=== PATIENT | female | born 1930 | race Caucasian/White ===

== ENCOUNTER 2016-08-13 14:08 | Observation (INO) | payer MEDICARE ==
[2016-08-13] MEDS ORDERED: Sodium Chloride 0.9% 1000 ML 1,000 ML ONE (15:09)
[2016-08-13] MEDS ORDERED: DUONEB 0.5-3 MG/3 ml Neb IH ONE ×2 (15:15→15:26)
--- NOTE | 2016-08-13 15:20 | ERPHSYRPT ---
- History of Present Illness Time Seen by Provider: 08/13/16 15:10 Source: patient Exam Limitations: no limitations Patient Subjective Stated Complaint: PT REPORTS THAT SHE HAS HAD A PRODUCTIVE COUGH BEGINNING YESTERDAY-THICK WHITE SPUTUM-LOW GRADE FEVER BEGINNING YESTERDAY -DENIES N/V/D-REPORTS PAIN INCREASING WITH DEEP BREATHING Triage Nursing Assessment: PT PALE FLUSHED ET WARM UPON ARRIVAL-WHEEZES NOTED- RESP LABORED WITH MOVEMENT-PT ABLE TO ANSWER QUESTIONS Physician History: 86-year-old white female brought by her family arrives with complaints of shortness of breath cough since last night.. Family states patient has had some pain with coughing earlier patient denies any chest pain at this time. Patient has no vomiting no diarrhea no other problems. Past medical history includes restless legs, insomnia, Thibodeaux's palsy, cyst right kidney, Past surgical history includes tonsillectomy appendectomy cholecystectomy hysterectomy kyphoplasty. Timing/Duration: yesterday (symptoms since last night) Activities at Onset: none Severity of Dyspnea-Max: moderate Severity of Dyspnea-Current: moderate Possible Cause: no prior episodes Modifying Factors: Improves With: coughing Associated Symptoms: cough, chest pain/discomfort (pain anterior chest with coughing), fever (low-grade fever), productive cough (white sputum), No edema, No insomnia, No loss of appetite, No hemoptysis, No calf pain, No dizziness, No heaviness, No heart racing, No lightheadedness, No leg swelling, No muscle spasms feet, No muscle spasms hands International travel in last 2 weeks: No Allergies/Adverse Reactions: aspirin Allergy (Mild, Verified 08/13/16 14:30) codeine [Codeine] Allergy (Mild, Verified 08/13/16 14:30) Penicillins Allergy (Mild, Verified 08/13/16 14:30) Sulfa (Sulfonamide Antibiotics) [Sulfa(Sulfonamide Antibiotics)] Allergy (Mild, Verified 08/13/16 14:30) Tetracyclines Allergy (Verified 08/13/16 14:30) maitake mushroom Adverse Reaction (Mild, Verified 08/13/16 14:30) Nausea and Vomiting Home Medications: Lisinopril/Hydrochlorothiazide [Lisinopril-Hctz 20-12.5 mg Tab] 1 each PO DAILY 03/15/12 [History] Pramipexole Di-HCl 0.5 mg [Mirapex 0.5 MG Tablet] 0.5 mg PO HS #0 [History] Simvastatin 40 mg [Zocor 40 mg] 40 mg PO HS 03/15/12 [History] Acetaminophen 325 mg [Tylenol 325 mg] 2 tab PO Q4H PRN PRN 07/21/14 [ History] Glimepiride 2 mg [Amaryl 2 MG] 2 mg PO DAILY 07/21/14 [History] PANTOPRAZOLE 40 mg Tablet [Protonix 40MG Tablet] 40 mg PO BID 07/21/14 [ History] Pioglitazone 30 mg [Actos 30 MG] 30 mg PO DAILY 07/21/14 [History] Senna 8.6 mg [Senokot 8.6 mg] 2 tab PO DAILY 07/21/14 [History] Amlodipine Besylate [Norvasc] 2.5 mg PO DAILY 08/13/16 [History] Ferrous Sulfate 325 mg [Feosol 325 mg] 325 mg PO BID 08/13/16 [History] Furosemide 40 mg [Lasix 40 MG] 40 mg PO DAILY 08/13/16 [History] Gabapentin [Neurontin] 300 mg PO HS 08/13/16 [History] Memantine HCl 5 mg [Namenda 5 MG] 5 mg PO BID 08/13/16 [History] Mirtazapine [Remeron] 7.5 mg PO HS 08/13/16 [History] Hx Tetanus, Diphtheria Vaccination/Date Given: No Hx Influenza Vaccination/Date Given: Yes (2015) Hx Pneumococcal Vaccination/Date Given: No Immunizations Up to Date: Yes - Review of Systems Constitutional: Fever, No Chills, No Fatigue, No Lethargy, No Malaise, No Night Sweats, No Weakness, No Weight Loss Eyes: No Symptoms, No Discharge, No Eye Pain, No Eye Redness, No Itchy, No Photophobia, No Tearing, No Vision Changes, No Double Vision, No Foreign Body Sensation Ears, Nose, & Throat: No Symptoms, No Ear Pain, No Ear Discharge, No Hearing Changes, No Tinnitus, No Nose Pain, No Nose Congestion, No Nose Discharge, No Sinus Drainage, No Epistaxis, No Mouth Pain, No Mouth Swelling, No Loose Teeth, No Throat Pain, No Throat Swelling, No Hoarse, No Painful Swallowing, No Snoring , No Stridor Respiratory: Cough, Dyspnea, Wheezing Cardiac: Chest Pain (pain with coughing earlier), No Edema, No Syncope Abdominal/Gastrointestinal: No Symptoms Genitourinary Symptoms: No Dysuria Musculoskeletal: No Back Pain, No Neck Pain Skin: No Rash Neurological: No Dizziness, No Focal Weakness, No Sensory Changes Psychological: No Symptoms Endocrine: No Symptoms All Other Systems: Reviewed and Negative - Past Medical History Pertinent Past Medical History: Yes Neurological History: Dementia, Migraines ENT History: No Pertinent History Cardiac History: High Cholesterol, Hypertension Respiratory History: Asthma, Bronchitis, Pneumonia Endocrine Medical History: Diabetes Type I, Hypothyroidism Musculoskeletal History: No Pertinent History GI Medical History: GERD History: Other Psycho-Social History: No Pertinent History Female Reproductive Disorders: No Pertinent History Other Medical History: restless legs, insomnia. hx bells palsey. recent cyst to right kidney - Past Surgical History Past Surgical History: Yes Neuro Surgical History: No Pertinent History Cardiac: No Pertinent History Respiratory: No Pertinent History Gastrointestinal: Appendectomy, Cholecystectomy Genitourinary: No Pertinent History Musculoskeletal: Orthopedic Surgery Female Surgical History: Hysterectomy Other Surgical History: kyphoplasty - Social History Smoking Status: Never smoker Exposure to second hand smoke: No Drug Use: none Patient Lives Alone: No - Female History Hx Now: No - Nursing Vital Signs Nursing Vital Signs: Initial Vital Signs Temperature 100.0 F Temperature Source Oral Pulse Rate 79 Respiratory Rate 16 Blood Pressure [] 113/54 Pain Intensity 8 - Physical Exam General Appearance: mild distress, other (well-developed obese white female alert oriented 3 frequent cough) Eye Exam: PERRL/EOMI Ears, Nose, Throat Exam: hearing grossly normal, normal ENT inspection, normal pharynx, No abnormal TM (R), No abnormal TM (L), No pharyngeal erythema Neck Exam: normal inspection, supple Respiratory Exam: diminished breath sounds, wheezing Cardiovascular/Chest Exam: normal heart sounds, regular rate/rhythm Abdominal/Gastrointestinal Exam: soft, No tenderness, No distention, No mass Extremity Exam: non-tender, normal range of motion, normal inspection, no calf tenderness, no pedal edema Peripheral Pulses Exam: dorsalis-pedis (R): 2+, dorsalis-pedis (L): 2+ Neurologic Exam: alert, oriented x 3, cooperative, brake repairer II-XII nml as tested, sensation nml, No motor deficits Skin Exam: normal color, warm, No dry SpO2 Interpretation: normal (94%) SpO2: 94 Oxygen Delivery: Room Air - Course Nursing assessment & vital signs reviewed: Yes EKG Interpreted by Me: RATE (98 bpm), Left Brandon Deviation, Other (EKG, sinus arrhythmia, 98 bpm, left axis deviation, no acute ST or T wave changes noted) - Radiology Exams Chest X-ray Interpretation: Discussed w/ radiologist (chest x-ray: Nonacute chest with chronic features) Ordered Tests: Active Orders 24 hr Category Date Time Status [employer] Jointer STAT Care 08/13/16 15:15 Active EKG-ER Only STAT Care 08/13/16 15:15 Active IV Insertion STAT Care 08/13/16 15:15 Active Pulse Oximetry (ED) STAT Care 08/13/16 15:15 Active CHEST 1 VIEW (PORTABLE) Stat Exams 08/13/16 15:15 Completed CBC W DIFF Stat Lab 08/13/16 15:35 Completed CMP Stat Lab 08/13/16 15:35 Completed NT PRO BNP Stat Lab 08/13/16 15:35 Completed TROPONIN Stat Lab 08/13/16 15:35 Completed VENOUS BLOOD GAS Urgent Lab 08/13/16 15:35 Completed Respiratory Nebulizer STAT RT 08/13/16 15:16 Completed Transfer Order Routine Transfer 08/13/16 16:56 Ordered Medication Summary Discontinued Medications Generic Name Dose Route Start Last Admin Trade Name Brenden PRN Reason Stop Dose Admin Albuterol/Ipratropium 3 ml 08/13/16 15:15 08/13/16 15:41 Duoneb 0.5-3 Mg/3 Ml Neb IH 08/13/16 15:16 3 ml STAT ONE Administration Albuterol/Ipratropium Confirm 08/13/16 15:26 Duoneb 0.5-3 Mg/3 Ml Neb Administered 08/13/16 15:27 Dose 3 ml IH .STK-MED ONE Sodium Chloride Confirm 08/13/16 15:09 Sodium Chloride 0.9% 1000 Ml Administered 08/13/16 15:10 Dose 1,000 mls @ ud .ROUTE .STK-MED ONE Lab/Rad Data: Laboratory Result Diagrams 08/13/16 15:35 08/13/16 15:35 Laboratory Results 08/13/16 08/13/16 08/13/16 Range/Units 15:40 15:35 15:35 WBC (4.0-10.5) K/mm3 RBC (4.1-5.4) M/mm3 Hgb (12.0-16.0) gm/dl Hct (35-47) % MCV (78-100) fl MCH (26-32) pg MCHC (32-36) g/dl RDW (11.5-14.0) % Plt Count (150-450) K/mm3 MPV (6-9.5) fl Gran % (36.0-66.0) % Lymphocytes % (24.0-44.0) % Monocytes % (0.0-12.0) % Eosinophils % (0.00-5.0) % Basophils % (0.0-0.4) % Basophils # (0-0.4) VBG pH 7.47 H (7.32-7.42) VBG pCO2 at Pat Temp 37 L (42-55) mm/Hg VBG pO2 at Pat Temp 50 H (25-40) mm/Hg VBG HCO3 26.9 (22-28) meq/L VBG O2 Sat (Angela) 90.5 L (95-100) VBG Base Excess 3.3 H (-2.0-2.0) VBG Hemoglobin 14.8 VBG Carboxyhemoglobin 3.5 (0.0-6.9) % T HGB POC Potassium 4.5 (3.5-5.1) Sodium 136 (136-145) mEq/L Potassium 4.6 (3.5-5.1) mEq/L Chloride 98 (98-107) mEq/L Carbon Dioxide 29.7 (21-32) mEq/L Anion Gap 12.8 (5-15) MEQ/L BUN 58 H (9-20) mg/dL Creatinine 2.50 H (0.55-1.30) mg/dl Estimated GFR 19 ML/MIN Glucose 155 H (70-110) MG/DL Calcium 8.7 (8.5-10.1) mg/dL Total Bilirubin 0.6 (0.2-1.0) mg/dL AST 17 (15-37) U/L ALT 14 (12-78) U/L Alkaline Phosphatase 73 (46-116) U/L Troponin I < 0.017 (0.000-0.056) ng/ml NT-Pro-B Natriuret Pep 4831 H (0-450) pg/ml Serum Total Protein 7.6 (6.4-8.2) gm/dL Albumin 3.1 L (3.4-5.0) g/dL Influenza Type A Ag POSITIVE (NEGATIVE) Influenza Type B Ag NEGATIVE (NEGATIVE) RSV (PCR) NEGATIVE (Negative) 08/13/16 Range/Units 15:35 WBC 10.4 (4.0-10.5) K/mm3 RBC 4.51 (4.1-5.4) M/mm3 Hgb 14.5 (12.0-16.0) gm/dl Hct 46.7 (35-47) % MCV 103.5 H (78-100) fl MCH 32.2 H (26-32) pg MCHC 31.0 L (32-36) g/dl RDW 16.7 H (11.5-14.0) % Plt Count 139 L (150-450) K/mm3 MPV 10.6 H (6-9.5) fl Gran % 82.2 H (36.0-66.0) % Lymphocytes % 10.2 L (24.0-44.0) % Monocytes % 7.4 (0.0-12.0) % Eosinophils % 0.1 (0.00-5.0) % Basophils % 0.1 (0.0-0.4) % Basophils # 0.01 (0-0.4) VBG pH (7.32-7.42) VBG pCO2 at Pat Temp (42-55) mm/Hg VBG pO2 at Pat Temp (25-40) mm/Hg VBG HCO3 (22-28) meq/L VBG O2 Sat (Angela) (95-100) VBG Base Excess (-2.0-2.0) VBG Hemoglobin VBG Carboxyhemoglobin (0.0-6.9) % T HGB POC Potassium (3.5-5.1) Sodium (136-145) mEq/L Potassium (3.5-5.1) mEq/L Chloride (98-107) mEq/L Carbon Dioxide (21-32) mEq/L Anion Gap (5-15) MEQ/L BUN (9-20) mg/dL Creatinine (0.55-1.30) mg/dl Estimated GFR ML/MIN Glucose (70-110) MG/DL Calcium (8.5-10.1) mg/dL Total Bilirubin (0.2-1.0) mg/dL AST (15-37) U/L ALT (12-78) U/L Alkaline Phosphatase (46-116) U/L Troponin I (0.000-0.056) ng/ml NT-Pro-B Natriuret Pep (0-450) pg/ml Serum Total Protein (6.4-8.2) gm/dL Albumin (3.4-5.0) g/dL Influenza Type A Ag (NEGATIVE) Influenza Type B Ag (NEGATIVE) RSV (PCR) (Negative) - Progress Progress: improved Air Movement: fair Progress Note: 08/13/16 16:48 This is a 86-year-old white female who has a local [facility] with history of dementia migraines, hypercholesterolemia, asthma, bronchitis or pneumonia, diabetes, hypothyroidism She is brought by [facility] stand with complaint of productive cough shortness of breath low grade temperature since last night. On arrival patient was short of breath she had diminished breath sounds bilateral wheezes. Patient was given albuterol treatment patient is feeling better however patient now has some rales which are out of all in the bases. Patient's vitals are stable she does have a temperature 100.1 pulse 1:15 respiration 26 blood pressure 121/56, Chest x-ray data stable nonacute chest was chronic features EKG was remarkable for sinus arrhythmia 98 bpm left axis deviation no acute ST or T wave changes were noted. Patient's venous gases pH 7.47 PCO2 37.. Chemistry sodium 136 potassium 4.6 chloride 98 bicarbonate 29.7 BUN 58 creatinine 2.5 glucose 155. CBC white cell 10.4 hemoglobin 14.94 hematocrit 46.7 platelets 139. Patient's troponin is less than 0.017 BNP is elevated at 4831 Patient states she is feeling better she does not have pain at this time Case is discussed with Dr. Gasca Will go ahead and give patient Lasix. Will start patient on Rocephin it is noted patient is allergic to penicillin this has been discussed with Dr. Gasca. Will place patient on telemetry MedSurg diagnosis CHF COPD. Will provide IV antibiotics Lasix and breathing treatments and continue telemetry. 08/13/16 17:01 Patient will be given Lasix 40 mg IV in the emergency room which is to continue during her observation admission. Will also have patient on Tamiflu 75 mg orally twice a day. Will give Rocephin 1 g IV in the emergency room which will continue. - Departure Time of Disposition: 16:55 Departure Disposition: Observation Clinical Impression: COPD with exacerbation, Shortness of breath Congestive heart failure Qualifiers: Congestive heart failure type: unspecified congestive heart failure type Congestive heart failure chronicity: acute Qualified Code(s): I50.9 - Heart failure, unspecified Condition: Fair Critical Care Time: No Referrals: KEM GAR [Primary Care Provider] - Instructions: Chronic Obstructive Pulmonary Disease, Heart Failure
--- NOTE | 2016-08-13 15:33 | XRAY ---
Indication: Cough. Short of breath. Comparison: July 21, 2014. Portable chest remains clear again with a few calcified granulomas. Heart is not enlarged with again valvular calcifications. Descending aorta remains tortuous. Bony thorax intact again with osteopenia, degenerative changes, and lower thoracic kyphoplasty. Impression: Nonacute chest with chronic features.
[2016-08-13 15:40] LABS: VBG BASE EXCESS 3.3 (-2.0-2.0); VBG CARBOXYHEMOGLOBIN 3.5 % T HGB (0.0-6.9); VBG HCO3- 26.9 meq/L (22-28); VBG HEMOGLOBIN 14.8; VBG O2 SATURATION 90.5 (95-100); VBG POTASSIUM 4.5 (3.5-5.1); VBG pH 7.47 (7.32-7.42)
[2016-08-13 15:51] LABS: BASOPHIL % 0.1 % (0.0-0.4); Eosinophil % 0.1 % (0.00-5.0); Granulocytes % 82.2 % (36.0-66.0); Lymphocytes % 10.2 % (24.0-44.0); Mean Cell Volume 103.5 fl (78-100); Mean Corpuscular Hemoglobin 32.2 pg (26-32); Mean Platelet Volume 10.6 fl (6-9.5); Monocytes % 7.4 % (0.0-12.0); Platelet Count 139 K/mm3 (150-450); Red Blood Count 4.51 M/mm3 (4.1-5.4); Red Cell Distribution Width 16.7 % (11.5-14.0); White Blood Count 10.4 K/mm3 (4.0-10.5)
[2016-08-13 16:16] LABS: ALBUMIN 3.1 g/dL (3.4-5.0); ALKALINE PHOSPHATASE 73 U/L (46-116); ANION GAP 12.8 MEQ/L (5-15); BILIRUBIN,TOTAL 0.6 mg/dL (0.2-1.0); BLOOD UREA NITROGEN 58 mg/dL (9-20); CHLORIDE 98 mEq/L (98-107); Carbon Dioxide 29.7 mEq/L (21-32); Glucose 155 MG/DL (70-110); Potassium 4.6 mEq/L (3.5-5.1); SGOT/AST 17 U/L (15-37); SGPT/ALT 14 U/L (12-78); SODIUM 136 mEq/L (136-145); Total Protein 7.6 gm/dL (6.4-8.2)
[2016-08-13 16:26] LABS: TROPONIN < 0.017 ng/ml (0.000-0.056)
[2016-08-13] MEDS ORDERED: Tamiflu 75MG Capsule PO ONE ×2 (17:02→17:21)
[2016-08-13] MEDS ORDERED: ROCEPHIN 1 Gm-D5w 50 ml Bag** 50 ML IV ONE ×2 (17:02→17:21)
[2016-08-13] MEDS ORDERED: Lasix 40 MG/4 ML IV ONE (17:02)
[2016-08-13] MEDS ORDERED: Lasix 40 MG/4 ML ONE (17:21)
[2016-08-13] MEDS ORDERED: MORPHINE SULFATE 4 MG INJ ONE (17:36)
[2016-08-13] MEDS: DUONEB 0.5-3 MG/3 ml Neb IH SCH ×2 (18:59→22:59)
[2016-08-13] MEDS ORDERED: Sodium Chloride 0.9% 1000 ML 1,000 ML IV SCH (21:00)
[2016-08-13] MEDS: Tamiflu 75MG Capsule PO SCH (22:03)
[2016-08-13] MEDS: Namenda 5 MG PO SCH (22:47)
[2016-08-13] MEDS: Protonix 40MG Tablet PO SCH (22:47)
[2016-08-13] MEDS: NEURONTIN 300 MG PO SCH (22:47)
[2016-08-13] MEDS: ZOCOR 20MG PO SCH (22:47)
[2016-08-13] MEDS: Mirapex 0.5 MG Tablet PO SCH (22:47)
[2016-08-13] MEDS: REMERON 30 MG PO SCH (23:51)
[2016-08-14] MEDS: DUONEB 0.5-3 MG/3 ml Neb IH SCH ×5 (03:00→18:45)
[2016-08-14] MEDS: Sodium Chloride 0.9% 1000 ML 1,000 ML IV SCH ×2 (03:31→23:35)
[2016-08-14 05:42] LABS: Mean Cell Volume 104.5 fl (78-100); Mean Platelet Volume 10.9 fl (6-9.5); Platelet Count 122 K/mm3 (150-450); Red Blood Count 3.79 M/mm3 (4.1-5.4); Red Cell Distribution Width 16.6 % (11.5-14.0); White Blood Count 7.9 K/mm3 (4.0-10.5)
[2016-08-14 05:53] LABS: Mean Corpuscular Hemoglobin 32.1 pg (26-32)
[2016-08-14 06:12] LABS: ALBUMIN 2.6 g/dL (3.4-5.0); ANION GAP 13.4 MEQ/L (5-15); BILIRUBIN,TOTAL 0.4 mg/dL (0.2-1.0); Carbon Dioxide 27.1 mEq/L (21-32); Potassium 4.2 mEq/L (3.5-5.1); Total Protein 6.4 gm/dL (6.4-8.2)
[2016-08-14] MEDS ORDERED: MORPHINE SULFATE 4 MG INJ IV PRN (07:16)
--- NOTE | 2016-08-14 08:04 | PCM.HP ---
History of Present Illness - Chief Complaint Chief Complaint: Shortness of Breath for 1-2 days History of Present Illness: is a 86-year-old white female brought by her family arrives with complaints of shortness of breath cough since last night.. Family states patient has had some pain with coughing earlier patient denies any chest pain at this time. Patient has no vomiting no diarrhea no other problems. - Review of Systems Constitutional: Fever, Chills, Fatigue, Lethargy, Malaise, Weakness Eyes: No Symptoms Ears, Nose, & Throat: No Symptoms Respiratory: Cough, No Short Of Breath Cardiac: No Chest Pain, No Edema, No Syncope Abdominal/Gastrointestinal: No Abdominal Pain, No Nausea, No Vomiting, No Diarrhea Genitourinary Symptoms: No Dysuria Musculoskeletal: No Back Pain, No Neck Pain Skin: No Rash Neurological: No Dizziness, No Focal Weakness, No Sensory Changes Psychological: No Symptoms Endocrine: No Symptoms Hematologic/Lymphatic: No Symptoms Immunological/Allergic: No Symptoms Medications & Allergies Home Medications: Home Medication List Pramipexole Di-HCl 0.5 mg [Mirapex 0.5 MG Tablet] 0.5 mg PO HS #0 [History Confirmed 08/13/16] Simvastatin 40 mg [Zocor 40 mg] 40 mg PO HS 03/15/12 [History Confirmed 08/13/16 ] Acetaminophen 325 mg [Tylenol 325 mg] 2 tab PO Q4H PRN PRN 07/21/14 [ History Confirmed 08/13/16] Glimepiride 2 mg [Amaryl 2 MG] 2 mg PO DAILY 07/21/14 [History Confirmed 08/13/16] PANTOPRAZOLE 40 mg Tablet [Protonix 40MG Tablet] 40 mg PO BID 07/21/14 [ History Confirmed 08/13/16] Pioglitazone 30 mg [Actos 30 MG] 30 mg PO DAILY 07/21/14 [History Confirmed 08/13/16] Senna 8.6 mg [Senokot 8.6 mg] 2 tab PO DAILY 07/21/14 [History Confirmed 08/13/16] Amlodipine Besylate [Norvasc] 2.5 mg PO DAILY 08/13/16 [History Confirmed ] Cholecalciferol (Vitamin D3) [Vitamin D] 5,000 unit PO DAILY 08/13/16 [ History Confirmed 08/13/16] Docusate Sodium 100 mg [Colace 100 MG] 100 mg PO TID 08/13/16 [History Confirmed 08/13/16] Epoetin Wong [Epogen] 5,000 unit IJ UD 08/13/16 [History Confirmed 08/13/16] Ferrous Sulfate 325 mg [Feosol 325 mg] 325 mg PO BID 08/13/16 [History Confirmed 08/13/16] Folic Acid 1 mg PO DAILY 08/13/16 [History Confirmed 08/13/16] Furosemide 40 mg [Lasix 40 MG] 40 mg PO DAILY 08/13/16 [History Confirmed 08/13/16] Gabapentin [Neurontin] 300 mg PO HS 08/13/16 [History Confirmed 08/13/16] Glucagon 1 mg [GlucaGen 1 MG] 1 mg IM DAILY PRN PRN 08/13/16 [History Confirmed 08/13/16] Hydrocodone Bit/Acetaminophen [Hydrocodon-Acetaminophen 5-325] 1 tab PO [id number] PRN 08/13/16 [History Confirmed 08/13/16] Levothyroxine Sodium 50 Mcg [Synthroid 50 Mcg] 50 mcg PO DAILY 08/13/16 [ History Confirmed 08/13/16] Lisinopril/Hydrochlorothiazide [Lisinopril-Hctz 10-12.5 mg Tab] 1 each PO DAILY 08/13/16 [History Confirmed 08/13/16] Melatonin/Pyridoxine [Melatonin 3 mg Tablet] 1 each PO HS 08/13/16 [History Confirmed 08/13/16] Memantine HCl 5 mg [Namenda 5 MG] 5 mg PO BID 08/13/16 [History Confirmed 08/13/16] Mirtazapine [Remeron] 7.5 mg PO HS 08/13/16 [History Confirmed 08/13/16] Allergies/Adverse Reactions: Allergies Allergy/AdvReac Type Severity Reaction Status Date / Time aspirin Allergy Mild Verified 02/20/17 14:30 codeine [Codeine] Allergy Mild Verified 08/13/16 14:30 Penicillins Allergy Mild Verified 08/13/16 14:30 Sulfa (Sulfonamide Allergy Mild Verified 08/13/16 14:30 Antibiotics) [Sulfa(Sulfonamide Antibiotics)] Tetracyclines Allergy Verified 08/13/16 14:30 maitake mushroom AdvReac Mild Nausea and Verified 08/13/16 14:30 Vomiting - Past Medical History Past Medical History: Yes Neurological History: Dementia, Migraines ENT History: No Pertinent History Cardiac History: High Cholesterol, Hypertension Respiratory History: Asthma, Bronchitis, Pneumonia Endocrine Medical History: Diabetes Type I, Hypothyroidism Musculoskelatal History: No Pertinent History GI Medical History: GERD History: Other Pyscho-Social History: No Pertinent History Reproductive Disorders: No Pertinent History Comment: restless legs, insomnia. hx bells palsey. recent cyst to right kidney - Female History Are you now?: No - Past Surgical History Past Surgical History: Yes Neuro Surgical History: No Pertinent History Cardiac History: No Pertinent History Respiratory Surgery: No Pertinent History GI Surgical History: Appendectomy, Cholecystectomy Genitourinary Surgical Hx: No Pertinent History Musculskeletal Surgical Hx: Orthopedic Surgery Female Surgical History: Hysterectomy Other Surgical History: kyphoplasty - Social History Smoking Status: Never smoker Exposure to second hand smoke: No Alcohol: None Drug Use: none - Physical Exam Vital Signs: Vital Signs - 24 hr Temp Pulse Resp BP BP Pulse Ox 08/14/16 07:25 97.6 F 80 18 105/47 95 08/14/16 07:22 97.6 F 80 18 105/47 95 08/14/16 04:00 98.5 F 81 18 100/50 97 08/14/16 03:00 81 18 97 08/14/16 00:00 98.5 F 75 19 102/49 95 08/13/16 22:59 75 19 95 08/13/16 22:00 89/45 08/13/16 19:48 100.1 F 87 18 82/48 91 L 08/13/16 19:04 86/52 08/13/16 18:59 86 23 93 L 08/13/16 17:02 94 L 08/13/16 17:00 100.1 F 82 20 86/52 91 L 08/13/16 15:50 94 L 08/13/16 15:42 99 08/13/16 15:40 79 16 113/54 98 08/13/16 15:16 115 H 24 95 08/13/16 14:21 100.0 F 115 H 26 H 121/56 94 L Oxygen-Last 24 hours O2 Percentage 2 Liters = 28% O2 Percentage 2 Liters = 28% O2 Percentage 2 Liters = 28% General Appearance: no apparent distress, alert Neurologic Exam: alert, oriented x 3, cooperative, normal mood/affect, nml cerebellar function, nml station & gait, sensation nml, No motor deficits Eye Exam: PERRL/EOMI, eyes nml inspection Ears, Nose, Throat Exam: normal ENT inspection, TMs normal, pharynx normal, moist mucous membranes Neck Exam: normal inspection, non-tender, supple, full range of motion Respiratory Exam: diminished breath sounds, wheezing, No respiratory distress Cardiovascular Exam: regular rate/rhythm, normal heart sounds, normal peripheral pulses Gastrointestinal/Abdomen Exam: soft, normal bowel sounds, No tenderness, No mass Back Exam: normal inspection, normal range of motion, No CVA tenderness, No vertebral tenderness Extremity Exam: normal inspection, normal range of motion, pelvis stable Skin Exam: normal color, warm, dry, No rash Lymphatic Exam: No adenopathy Results - Labs Lab/Micro Results: Accuchecks Date 08/13/16 Time 22:00 Accucheck Value: 164 Lab Results-Last 24 Hours 08/14/16 08/14/16 Range/Units 05:25 05:25 WBC 7.9 (4.0-10.5) K/mm3 RBC 3.79 L (4.1-5.4) M/mm3 Hgb 12.2 (12.0-16.0) gm/dl Hct 39.6 (35-47) % MCV 104.5 H (78-100) fl MCH 32.1 H (26-32) pg MCHC 30.8 L (32-36) g/dl RDW 16.6 H (11.5-14.0) % Plt Count 122 L (150-450) K/mm3 MPV 10.9 H (6-9.5) fl Sodium 136 (136-145) mEq/L Potassium 4.2 (3.5-5.1) mEq/L Chloride 100 (98-107) mEq/L Carbon Dioxide 27.1 (21-32) mEq/L Anion Gap 13.4 (5-15) MEQ/L BUN 68 H (9-20) mg/dL Creatinine 3.12 H (0.55-1.30) mg/dl Estimated GFR 15 ML/MIN Glucose 142 H (70-110) MG/DL Calcium 7.8 L (8.5-10.1) mg/dL Total Bilirubin 0.4 (0.2-1.0) mg/dL AST 44 H (15-37) U/L ALT 34 (12-78) U/L Alkaline Phosphatase 68 (46-116) U/L Serum Total Protein 6.4 (6.4-8.2) gm/dL Albumin 2.6 L (3.4-5.0) g/dL Accuchecks Date 08/13/16 Time 22:00 Accucheck Value: 164 - Other Procedures and Tests Respiratory Therapy 08/13/16 19:00 Respiratory Nebulizer Q4H Assessment/Plan (1) Influenza A Current Visit: Yes Status: Acute Assessment & Plan: continue supportive treatment Code(s): J10.1 - FLU DUE TO OTH IDENT INFLUENZA VIRUS W OTH RESP MANIFEST (2) COPD with exacerbation Current Visit: Yes Status: Acute Assessment & Plan: continue bronchodilater treatment Code(s): J44.1 - CHRONIC OBSTRUCTIVE PULMONARY DISEASE W (ACUTE) EXACERBATION (3) Congestive heart failure Current Visit: Yes Status: Chronic Qualifiers: Congestive heart failure type: unspecified congestive heart failure type Congestive heart failure chronicity: acute on chronic Qualified Code(s): I50.9 - Heart failure, unspecified Code(s): I50.9 - HEART FAILURE, UNSPECIFIED (4) Shortness of breath Current Visit: Yes Status: Acute Code(s): R06.02 - SHORTNESS OF BREATH (5) Fever Current Visit: No Status: Acute Code(s): R50.9 - FEVER, UNSPECIFIED (6) Chronic renal insufficiency, stage III (moderate) Current Visit: No Status: Chronic Code(s): N18.3 - CHRONIC KIDNEY DISEASE, STAGE 3 (MODERATE) (7) Diabetes mellitus Current Visit: No Status: Chronic Code(s): E11.9 - TYPE 2 DIABETES MELLITUS WITHOUT COMPLICATIONS
[2016-08-14] MEDS ORDERED: TYLENOL 325 MG PO PRN ×2 (09:00→09:13)
[2016-08-14] MEDS ORDERED: GlucaGen 1 MG IM PRN (09:00)
[2016-08-14] MEDS ORDERED: MEDICATION INTERVENTION MC SCH (09:30)
[2016-08-14] MEDS ORDERED: Lasix 40 MG/4 ML IV SCH (10:00)
[2016-08-14] MEDS ORDERED: NON-FORMULARY ITEM (Lisinopril/Hydrochlorothiazide [Lisinopril-Hctz 10-12.5 Mg Tab] 1 EACH PO SCH (10:00)
[2016-08-14] MEDS ORDERED: Lasix 40 MG PO SCH (10:00)
[2016-08-14] MEDS ORDERED: NON-FORMULARY ITEM (Amlodipine Besylate [Norvasc] 2.5 MG) PO SCH (10:00)
[2016-08-14] MEDS: ROCEPHIN 1 Gm-D5w 50 ml Bag** 50 ML IV SCH (10:13)
[2016-08-14] MEDS: Tamiflu 75MG Capsule PO SCH (10:13)
[2016-08-14] MEDS: Namenda 5 MG PO SCH ×2 (10:13→21:19)
[2016-08-14] MEDS: Protonix 40MG Tablet PO SCH ×2 (10:13→21:19)
[2016-08-14] MEDS: Colace 100 MG PO SCH ×3 (10:16→21:19)
[2016-08-14] MEDS: hydroDIURIL 25 MG PO SCH (10:16)
[2016-08-14] MEDS: SENOKOT 8.6 MG PO SCH (10:16)
[2016-08-14] MEDS: Zestril 10 MG PO SCH (10:16)
[2016-08-14] MEDS: Actos 30 MG PO SCH (10:16)
[2016-08-14] MEDS: NORVASC 5 MG PO SCH (10:16)
[2016-08-14] MEDS: FEOSOL 325 MG PO SCH ×2 (10:16→21:19)
[2016-08-14] MEDS: Amaryl 2 MG PO SCH (10:17)
[2016-08-14] MEDS: SYNTHROID 50 MCG PO SCH (10:17)
[2016-08-14] MEDS: FOLATE 1 MG PO SCH (10:17)
[2016-08-14] MEDS: VITAMIN D PO SCH (10:17)
[2016-08-14] MEDS: Zithromax 500 MG/ 250 ML NaCl Premix 250 ML IV SCH (10:54)
[2016-08-14] MEDS: NovoLOG Insulin SQ PRN ×2 (12:00→16:50)
[2016-08-14] MEDS: NORCO 5/325 MG PO PRN (12:32)
[2016-08-14] MEDS: NEURONTIN 300 MG PO SCH (21:19)
[2016-08-14] MEDS: ZOCOR 20MG PO SCH (21:19)
[2016-08-14] MEDS: REMERON 30 MG PO SCH (21:19)
[2016-08-14] MEDS: Mirapex 0.5 MG Tablet PO SCH (21:19)
[2016-08-14] MEDS ORDERED: PYRIDOXINE PO SCH (22:00)
[2016-08-14] MEDS ORDERED: MELATONIN PO SCH (22:00)
[2016-08-15] MEDS: DUONEB 0.5-3 MG/3 ml Neb IH SCH ×7 (00:02→15:05)
[2016-08-15 06:11] LABS: ANION GAP 12.5 MEQ/L (5-15); Carbon Dioxide 26.7 mEq/L (21-32); Potassium 4.6 mEq/L (3.5-5.1)
--- NOTE | 2016-08-15 09:12 | XRAY ---
Indication: CHF. COPD. Comparison: August 13, 2016. PA/lateral chest less inflated today with new right middle lobe infiltrate/atelectasis. Remaining heart and left lung stable and nonacute.
[2016-08-15] MEDS: Colace 100 MG PO SCH ×2 (09:39→14:28)
[2016-08-15] MEDS: hydroDIURIL 25 MG PO SCH (09:40)
[2016-08-15] MEDS: FOLATE 1 MG PO SCH (09:40)
[2016-08-15] MEDS: Zestril 10 MG PO SCH (09:40)
[2016-08-15] MEDS: VITAMIN D PO SCH (09:40)
[2016-08-15] MEDS: FEOSOL 325 MG PO SCH (09:40)
[2016-08-15] MEDS: SENOKOT 8.6 MG PO SCH (09:40)
[2016-08-15] MEDS: Protonix 40MG Tablet PO SCH (09:40)
[2016-08-15] MEDS: NORVASC 5 MG PO SCH (09:40)
[2016-08-15] MEDS: SYNTHROID 50 MCG PO SCH (09:40)
[2016-08-15] MEDS: Amaryl 2 MG PO SCH (09:40)
[2016-08-15] MEDS: ROCEPHIN 1 Gm-D5w 50 ml Bag** 50 ML IV SCH (09:41)
[2016-08-15] MEDS: Namenda 5 MG PO SCH (09:41)
[2016-08-15] MEDS: NORCO 5/325 MG PO PRN (09:41)
[2016-08-15] MEDS: Actos 30 MG PO SCH (09:41)
[2016-08-15] MEDS ORDERED: Tamiflu 75MG Capsule PO SCH (10:00)
[2016-08-15] MEDS ORDERED: PROCRIT SQ SCH (10:00)
[2016-08-15] MEDS: Zithromax 500 MG/ 250 ML NaCl Premix 250 ML IV SCH (10:48)
[2016-08-15] MEDS: NovoLOG Insulin SQ PRN (11:26)
[2016-08-15 11:41] VITALS: BP 100/44; PULSE 91; O2SAT 95
--- NOTE | 2016-08-15 12:19 | PCM.DS ---
Discharge Summary Date of Admission: 08/13/16 18:07 Admitting Physician: KEM GAR Primary Care Provider: KEM GAR Allergies Allergies aspirin Allergy (Mild, Verified 08/13/16 14:30) codeine [Codeine] Allergy (Mild, Verified 08/13/16 14:30) Penicillins Allergy (Mild, Verified 08/13/16 14:30) Sulfa (Sulfonamide Antibiotics) [Sulfa(Sulfonamide Antibiotics)] Allergy (Mild, Verified 08/13/16 14:30) Tetracyclines Allergy (Verified 08/13/16 14:30) maitake mushroom Adverse Reaction (Mild, Verified 08/13/16 14:30) Nausea and Vomiting Hospital Summary - Hospital Course Hospital Course: Chief Complaint Diagnosis Shortness of Breath for 1-2 days Allergies Allergy/AdvReac Type Severity Reaction Status Date / Time aspirin Allergy Mild Verified 08/13/16 14:30 codeine [Codeine] Allergy Mild Verified 08/13/16 14:30 Penicillins Allergy Mild Verified 08/13/16 14:30 Sulfa (Sulfonamide Allergy Mild Verified 08/13/16 14:30 Antibiotics) [Sulfa(Sulfonamide Antibiotics)] Tetracyclines Allergy Verified 08/13/16 14:30 maitake mushroom AdvReac Mild Nausea and Verified 08/13/16 14:30 Vomiting Vital Signs (Last 24 hours) Temp Pulse Resp BP Pulse Ox 08/15/16 11:40 98.7 F 91 H 18 100/44 95 08/15/16 07:34 98.3 F 72 15 134/63 96 08/15/16 06:58 72 15 96 08/15/16 04:00 99.1 F 88 22 134/62 94 L 08/15/16 03:32 87 18 94 L 08/15/16 00:02 86 18 92 L 08/15/16 00:00 97.6 F 85 17 114/57 95 08/14/16 20:00 98.2 F 72 13 116/54 97 08/14/16 18:45 72 13 97 08/14/16 16:00 97.7 F 78 21 107/51 97 08/14/16 14:38 78 16 96 Home Medications Medication Instructions Recorded Confirmed Last Taken Type Amlodipine Besylate [Norvasc] 2.5 mg PO DAILY 08/13/16 08/13/16 08/13/16 History Cholecalciferol (Vitamin D3) 5,000 unit PO DAILY 08/13/16 08/13/16 08/13/16 History [Vitamin D] Docusate Sodium 100 mg [Colace 100 mg PO TID 08/13/16 08/13/16 08/13/16 08: 00 History 100 MG] Epoetin Wong [Epogen] 5,000 unit IJ UD 08/13/16 08/13/16 Unknown History Ferrous Sulfate 325 mg [Feosol 325 mg PO BID 08/13/16 08/13/16 08/13/16 08: 00 History 325 mg] Folic Acid 1 mg PO DAILY 08/13/16 08/13/16 08/13/16 History Furosemide 40 mg [Lasix 40 40 mg PO DAILY 08/13/16 08/13/16 08/13/16 History MG] Gabapentin [Neurontin] 300 mg PO HS 08/13/16 08/13/16 08/12/16 History Glucagon 1 mg [GlucaGen 1 MG] 1 mg IM DAILY PRN PRN 08/13/16 08/13/16 Unknown History Hydrocodone Bit/Acetaminophen 1 tab PO [id number] PRN 08/13/16 08/13/16 Unknown History [Hydrocodon-Acetaminophen 5-325] Levothyroxine Sodium 50 Mcg 50 mcg PO DAILY 08/13/16 08/13/16 08/13/16 History [Synthroid 50 Mcg] Lisinopril/Hydrochlorothiazide 1 each PO DAILY 08/13/16 08/13/16 08/13/16 History [Lisinopril-Hctz 10-12.5 mg Tab] Melatonin/Pyridoxine [Melatonin 3 1 each PO HS 08/13/16 08/13/16 Unknown History mg Tablet] Memantine HCl 5 mg [Namenda 5 5 mg PO BID 08/13/16 08/13/16 08/13/16 History MG] Mirtazapine [Remeron] 7.5 mg PO HS 08/13/16 08/13/16 08/12/16 History Cephalexin Mh 500 mg [Keflex 500 500 mg PO QID #7 capsule 08/15/16 Unknown Rx mg] Oseltamivir 75 mg [Tamiflu 75MG 75 mg PO DAILY #5 cap 08/15/16 Unknown Rx Capsule] Current Medications Generic Name Dose Route Start Last Admin Trade Name Freq PRN Reason Stop Dose Admin Acetaminophen 650 mg 08/14/16 09:13 Tylenol 325 Mg PO 09/13/16 09:12 Q4H PRN PRN PAIN Acetaminophen/Hydrocodone Bitart 1 tab 08/14/16 09:00 08/15/16 09:41 [place] 5/325 Mg PO 08/19/16 08:59 1 tab [id number] PRN Administration PAIN Albuterol/Ipratropium 3 ml 08/13/16 19:00 08/15/16 10:16 Duoneb 0.5-3 Mg/3 Ml Neb IH 09/12/16 18:59 3 ml Q4HRT KIERAN Administration Amlodipine Besylate 2.5 mg 08/14/16 10:00 08/15/16 09:40 Norvasc 5 Mg PO 09/13/16 09:59 2.5 mg DAILY KIERAN Administration Cholecalciferol 5,000 unit 08/14/16 10:00 08/15/16 09:40 Vitamin D PO 09/13/16 09:59 5,000 unit DAILY KIERAN Administration Docusate Sodium 100 mg 08/14/16 10:00 08/15/16 09:39 Colace 100 Mg PO 09/13/16 09:59 100 mg TID KIERAN Administration Epoetin Wong 5,000 units 08/15/16 10:00 Procrit 78035 Units/Ml SQ 09/14/16 09:59 MoWeFr@1000 KIERAN Ferrous Sulfate 325 mg 08/14/16 10:00 08/15/16 09:40 Feosol 325 Mg PO 09/13/16 09:59 325 mg BID KIERAN Administration Folic Acid 1 mg 08/14/16 10:00 08/15/16 09:40 Folate 1 Mg PO 09/13/16 09:59 1 mg DAILY KIERAN Administration Furosemide 40 mg 08/14/16 10:00 Lasix 40 Mg/4 Ml IV 09/13/16 09:59 BID DIURETIC KIEARN Furosemide 40 mg 08/14/16 10:00 Lasix 40 Mg PO 09/13/16 09:59 DAILY KIERAN Gabapentin 300 mg 08/13/16 22:00 08/14/16 21:19 Neurontin 300 Mg PO 09/12/16 21:59 300 mg HS KIERAN Administration Glimepiride 2 mg 08/14/16 10:00 08/15/16 09:40 Amaryl 2 Mg PO 09/13/16 09:59 2 mg DAILY KIERAN Administration Glucagon 1 mg 08/14/16 09:00 Glucagen 1 Mg IM 09/13/16 08:59 DAILY PRN PRN HYPOGLYCEMIA Hydrochlorothiazide 12.5 mg 08/14/16 10:00 08/15/16 09:40 Hydrodiuril 25 Mg PO 09/13/16 09:59 12.5 mg DAILY KIERAN Administration Ceftriaxone Sodium/Dextrose 50 mls @ 100 mls/hr 08/14/16 10:00 08/15/16 09:41 Rocephin 1 Gm-D5w 50 Ml Bag IV 09/13/16 09:59 100 mls/hr Q24H10 KIERAN Administration Azithromycin 250 mls @ 125 mls/hr 08/14/16 10:00 08/15/16 10:48 Zithromax 500 Mg/ 250 Ml Nacl Premix IV 09/13/16 09:59 125 mls/hr Q24H10 KIERAN Administration Sodium Chloride 1,000 mls @ 10 mls/hr 08/13/16 23:15 08/14/16 23:35 Sodium Chloride 0.9% 1000 Ml IV 09/12/16 23:14 10 mls/hr .Q24H KIERAN Administration Insulin Aspart 0 unit 08/13/16 18:13 08/15/16 11:26 Novolog Insulin SQ 09/12/16 18:12 4 unit UD PRN Administration HYPERGLYCEMIA Levothyroxine Sodium 50 mcg 08/14/16 10:00 08/15/16 09:40 Synthroid 50 Mcg PO 09/13/16 09:59 50 mcg DAILY KIERAN Administration Lisinopril 10 mg 08/14/16 10:00 08/15/16 09:40 Zestril 10 Mg PO 09/13/16 09:59 10 mg DAILY KIERAN Administration Memantine 5 mg 08/13/16 22:00 08/15/16 09:41 Namenda 5 Mg PO 09/12/16 21:59 5 mg BID KIERAN Administration Mirtazapine 7.5 mg 08/13/16 22:00 08/14/16 21:19 Remeron 30 Mg PO 09/12/16 21:59 7.5 mg HS KIERAN Administration Morphine Sulfate 4 mg 08/14/16 07:16 Morphine Sulfate 4 Mg Inj IV 08/19/16 07:15 Q4H PRN PRN PAIN Oseltamivir Phosphate 75 mg 08/15/16 10:00 08/15/16 09:40 Tamiflu 75mg Capsule PO 09/14/16 09:59 75 mg DAILY KIERAN Administration Pantoprazole Sodium 40 mg 08/13/16 22:00 08/15/16 09:40 Protonix 40mg Tablet PO 09/12/16 21:59 40 mg BID KIERAN Administration Pioglitazone HCl 30 mg 08/14/16 10:00 08/15/16 09:41 Actos 30 Mg PO 09/13/16 09:59 30 mg DAILY KIERAN Administration Pramipexole Dihydrochloride 0.5 mg 08/13/16 22:00 08/14/16 21:19 Mirapex 0.5 Mg Tablet PO 09/12/16 21:59 0.5 mg HS KIERAN Administration Senna 17.2 mg 08/14/16 10:00 08/15/16 09:40 Senokot 8.6 Mg PO 09/13/16 09:59 17.2 mg DAILY KIERAN Administration Simvastatin 40 mg 08/13/16 22:00 08/14/16 21:19 Zocor 20mg PO 09/12/16 21:59 40 mg HS KIERAN Administration Discontinued Medications Generic Name Dose Route Start Last Admin Trade Name Freq PRN Reason Stop Dose Admin Albuterol/Ipratropium 3 ml 08/13/16 15:15 08/13/16 15:41 Duoneb 0.5-3 Mg/3 Ml Neb IH 08/13/16 15:16 3 ml STAT ONE Administration Albuterol/Ipratropium Confirm 08/13/16 15:26 Duoneb 0.5-3 Mg/3 Ml Neb Administered 08/13/16 15:27 Dose 3 ml IH .STK-MED ONE Furosemide 40 mg 08/13/16 17:02 08/13/16 17:26 Lasix 40 Mg/4 Ml IV 08/13/16 17:03 40 mg STAT ONE Administration Furosemide Confirm 08/13/16 17:21 Lasix 40 Mg/4 Ml Administered 08/13/16 17:22 Dose 40 mg .ROUTE .STK-MED ONE Sodium Chloride Confirm 08/13/16 15:09 Sodium Chloride 0.9% 1000 Ml Administered 08/13/16 15:10 Dose 1,000 mls @ ud .ROUTE .STK-MED ONE Ceftriaxone Sodium/Dextrose 50 mls @ 100 mls/hr 08/13/16 17:02 08/13/16 17:26 Rocephin 1 Gm-D5w 50 Ml Bag IV 08/13/16 17:31 100 mls/hr STAT ONE Administration Ceftriaxone Sodium/Dextrose Confirm 08/13/16 17:21 Rocephin 1 Gm-D5w 50 Ml Bag Administered 08/13/16 17:22 Dose 50 mls @ ud IV .STK-MED ONE Sodium Chloride 250 mls @ 999 mls/hr 08/13/16 20:52 08/13/16 21:00 Sodium Chloride 0.9% 1000 Ml IV 08/13/16 21:07 999 mls/hr .Q16M STA Administration Sodium Chloride 1,000 mls @ 100 mls/hr 08/13/16 21:00 Sodium Chloride 0.9% 1000 Ml IV 09/12/16 20:59 .Q10H KIERAN Morphine Sulfate Confirm 08/13/16 17:36 Morphine Sulfate 4 Mg Inj Administered 08/13/16 17:37 Dose 4 mg .ROUTE .STK-MED ONE Oseltamivir Phosphate 75 mg 08/13/16 17:02 08/13/16 17:26 Tamiflu 75mg Capsule PO 08/13/16 17:03 75 mg STAT ONE Administration Oseltamivir Phosphate Confirm 08/13/16 17:21 Tamiflu 75mg Capsule Administered 08/13/16 17:22 Dose 75 mg PO .STK-MED ONE Oseltamivir Phosphate 75 mg 08/13/16 22:00 08/14/16 10:13 Tamiflu 75mg Capsule PO 09/12/16 21:59 75 mg BID KIERAN Administration Intake & Output (Last 24 hours) 08/13/16 08/14/16 08/15/16 08/16/16 11:59 11:59 11:59 11:59 Intake Total 1403 1566 Output Total 250 1100 Balance 1153 466 Weight 95.39 kg 95.617 kg Laboratory Results (Last 24 hours) 08/15/16 05:25 Sodium 136 Potassium 4.6 Chloride 101 Carbon Dioxide 26.7 Anion Gap 12.5 BUN 64 H Creatinine 2.30 H Estimated GFR 21 Glucose 137 H Calcium 8.2 L Orders (Last 24 hours) Category Date Time Status Discontinue Telemetry ROUTINE Care 08/14/16 11:23 Completed Discharge Routine Discharge 08/15/16 11:49 Ordered Discharge/Telephone Order Routine Discharge 08/15/16 11:49 Active CHEST 2 VIEWS (PA AND LAT) Routine Exams 08/15/16 08:00 Completed BMP AM.LAB Lab 08/15/16 05:25 Completed Epoetin Wong 10563 Units/ml [Procrit 08684 UNITS/ML* Med 08/15/16 10:00 Active ] 5,000 units SQ MoWeFr@1000 Oseltamivir 75 mg [Tamiflu 75MG Capsule] Med 08/15/16 10:00 Active 75 mg PO DAILY Patient Care Notes (Last 24 hours) 08/15/16 10:02 Nursing Note by Brittnee Ledesma charge pt for primary iv tubing Initialized on 08/15/16 10:02 - END OF NOTE Patient is 86 year old female admitted with influenza A pneumonia. Patient also has chronic renal insufficiency. Patient was treated with tamiflu, IV fluids. patient did well, become afebrile and being transferred back to [place]. - Vitals & Intake/Output Vital Signs: Vital Signs Temperature 98.7 F 08/15/16 11:40 Pulse Rate 91 H 08/15/16 11:40 Respiratory Rate 18 08/15/16 11:40 Blood Pressure 100/44 08/15/16 11:40 O2 Sat by Pulse Oximetry 95 08/15/16 11:40 Oxygen-Last Documented O2 Percentage 2 Liters = 28% Intake & Output: Intake & Output 08/13/16 08/14/16 08/15/16 08/16/16 11:59 11:59 11:59 11:59 Intake Total 1403 1566 Output Total 250 1100 Balance 1153 466 Weight 95.39 kg 95.617 kg - Lab Result Diagrams: 08/14/16 05:25 08/15/16 05:25 Lab Results-Last 24 Hrs: Accuchecks Date 08/15/16 Date 08/15/16 Time 11:26 Time 07:30 Accucheck Value: 258 Accucheck Value: 137 Accucheck Value: 105 Accucheck Value: 212 Lab Results-Last 24 Hours 08/15/16 Range/Units 05:25 Sodium 136 (136-145) mEq/L Potassium 4.6 (3.5-5.1) mEq/L Chloride 101 (98-107) mEq/L Carbon Dioxide 26.7 (21-32) mEq/L Anion Gap 12.5 (5-15) MEQ/L BUN 64 H (9-20) mg/dL Creatinine 2.30 H (0.55-1.30) mg/dl Estimated GFR 21 ML/MIN Glucose 137 H (70-110) MG/DL Calcium 8.2 L (8.5-10.1) mg/dL Micro Results-Entire Visit: Accuchecks 08/15/16 Date 08/15/16 Time 11:26 Time 07:30 Accucheck Value: 258 Accucheck Value: 137 Accucheck Value: 105 Accucheck Value: 212 - Radiology Exams Ordered Rad Exams-Entire Visit: Radiology Procedures Category Date Time Status CHEST 2 VIEWS (PA AND LAT) Routine Exams 08/15/16 08:00 Completed - Procedures and Test Procedures and Tests throughout Hospitalization: Therapy Orders & Screens 08/13/16 19:00 Respiratory Nebulizer Q4H Comment: DUONEB Q4 HOURS Diagnosis: Shortness of Breath Discharge Exam General Appearance: no apparent distress, alert Neurologic Exam: alert, oriented x 3, cooperative, normal mood/affect, nml cerebellar function, sensation nml, No motor deficits Skin Exam: normal color, warm, dry Eye Exam: PERRL, EOMI, eyes nml inspection Ears, Nose, Throat Exam: normal ENT inspection, pharynx normal, moist mucous membranes Neck Exam: normal inspection, non-tender, supple, full range of motion Respiratory Exam: normal breath sounds, lungs clear, No respiratory distress Cardiovascular Exam: regular rate/rhythm, normal heart sounds Gastrointestinal/Abdomen Exam: soft, No tenderness, No mass Extremity Exam: normal inspection, normal range of motion Back Exam: normal inspection, normal range of motion, No CVA tenderness, No vertebral tenderness Pelvic Exam: deferred Rectal Exam: deferred Final Diagnosis/Problem List - Final Discharge Diagnosis/Problem (1) Influenza A Current Visit: Yes Status: Resolved Assessment & Plan: Last Vital Signs Temp 98.7 F 08/15/16 11:40 Pulse 91 H 08/15/16 11:40 Resp 18 08/15/16 11:40 BP 100/44 08/15/16 11:40 Pulse Ox 95 08/15/16 11:40 Allergies aspirin Allergy (Mild, Verified 08/13/16 14:30) codeine [Codeine] Allergy (Mild, Verified 08/13/16 14:30) Penicillins Allergy (Mild, Verified 08/13/16 14:30) Sulfa (Sulfonamide Antibiotics) [Sulfa(Sulfonamide Antibiotics)] Allergy (Mild, Verified 08/13/16 14:30) Tetracyclines Allergy (Verified 08/13/16 14:30) maitake mushroom Adverse Reaction (Mild, Verified 08/13/16 14:30) Nausea and Vomiting Active Medications Acetaminophen (Tylenol 325 Mg) 650 mg PO Q4H PRN PRN PRN Reason: PAIN Stop: 09/13/16 09:12 Acetaminophen/Hydrocodone Bitart ([place] 5/325 Mg) 1 tab PO [id number] PRN PRN Reason: PAIN Stop: 08/19/16 08:59 Last Admin: 08/15/16 09:41 Dose: 1 tab Albuterol/Ipratropium (Duoneb 0.5-3 Mg/3 Ml Neb) 3 ml IH Q4HRT KIERAN Stop: 09/12/16 18:59 Last Admin: 08/15/16 10:16 Dose: 3 ml Amlodipine Besylate (Norvasc 5 Mg) 2.5 mg PO DAILY KIERAN Stop: 09/13/16 09:59 Last Admin: 08/15/16 09:40 Dose: 2.5 mg Cholecalciferol (Vitamin D) 5,000 unit PO DAILY KIERAN Stop: 09/13/16 09:59 Last Admin: 08/15/16 09:40 Dose: 5,000 unit Docusate Sodium (Colace 100 Mg) 100 mg PO TID KIERAN Stop: 09/13/16 09:59 Last Admin: 08/15/16 09:39 Dose: 100 mg Epoetin Wong (Procrit 52515 Units/Ml) 5,000 units SQ MoWeFr@1000 KIERAN Stop: 09/14/16 09:59 Ferrous Sulfate (Feosol 325 Mg) 325 mg PO BID KIERAN Stop: 09/13/16 09:59 Last Admin: 08/15/16 09:40 Dose: 325 mg Folic Acid (Folate 1 Mg) 1 mg PO DAILY KIERAN Stop: 09/13/16 09:59 Last Admin: 08/15/16 09:40 Dose: 1 mg Furosemide (Lasix 40 Mg/4 Ml) 40 mg IV BID DIURETIC KIERAN Stop: 09/13/16 09:59 Furosemide (Lasix 40 Mg) 40 mg PO DAILY KIERAN Stop: 09/13/16 09:59 Gabapentin (Neurontin 300 Mg) 300 mg PO HS KIERAN Stop: 09/12/16 21:59 Last Admin: 08/14/16 21:19 Dose: 300 mg Glimepiride (Amaryl 2 Mg) 2 mg PO DAILY KIERAN Stop: 09/13/16 09:59 Last Admin: 08/15/16 09:40 Dose: 2 mg Glucagon (Glucagen 1 Mg) 1 mg IM DAILY PRN PRN PRN Reason: HYPOGLYCEMIA Stop: 09/13/16 08:59 Hydrochlorothiazide (Hydrodiuril 25 Mg) 12.5 mg PO DAILY KIERAN Stop: 09/13/16 09:59 Last Admin: 08/15/16 09:40 Dose: 12.5 mg Ceftriaxone Sodium/Dextrose (Rocephin 1 Gm-D5w 50 Ml Bag) 50 mls @ 100 mls/ hr IV Q24H10 [facility] Stop: 09/13/16 09:59 Last Admin: 08/15/16 09:41 Dose: 100 mls/hr Azithromycin (Zithromax 500 Mg/ 250 Ml Nacl Premix) 250 mls @ 125 mls/hr IV Q24H10 [facility] Stop: 09/13/16 09:59 Last Admin: 08/15/16 10:48 Dose: 125 mls/hr Sodium Chloride (Sodium Chloride 0.9% 1000 Ml) 1,000 mls @ 10 mls/hr IV .Q24H KIERAN Stop: 09/12/16 23:14 Last Admin: 08/14/16 23:35 Dose: 10 mls/hr Insulin Aspart (Novolog Insulin) 0 unit SQ UD PRN PRN Reason: HYPERGLYCEMIA Stop: 09/12/16 18:12 Last Admin: 08/15/16 11:26 Dose: 4 unit Levothyroxine Sodium (Synthroid 50 Mcg) 50 mcg PO DAILY KIERAN Stop: 09/13/16 09:59 Last Admin: 08/15/16 09:40 Dose: 50 mcg Lisinopril (Zestril 10 Mg) 10 mg PO DAILY KIERAN Stop: 09/13/16 09:59 Last Admin: 08/15/16 09:40 Dose: 10 mg Memantine (Namenda 5 Mg) 5 mg PO BID KIERAN Stop: 09/12/16 21:59 Last Admin: 08/15/16 09:41 Dose: 5 mg Mirtazapine (Remeron 30 Mg) 7.5 mg PO HS [facility] Stop: 09/12/16 21:59 Last Admin: 08/14/16 21:19 Dose: 7.5 mg Morphine Sulfate (Morphine Sulfate 4 Mg Inj) 4 mg IV Q4H PRN PRN PRN Reason: PAIN Stop: 08/19/16 07:15 Oseltamivir Phosphate (Tamiflu 75mg Capsule) 75 mg PO DAILY [facility] Stop: 09/14/16 09:59 Last Admin: 08/15/16 09:40 Dose: 75 mg Pantoprazole Sodium (Protonix 40mg Tablet) 40 mg PO BID [facility] Stop: 09/12/16 21:59 Last Admin: 08/15/16 09:40 Dose: 40 mg Pioglitazone HCl (Actos 30 Mg) 30 mg PO DAILY KIERAN Stop: 09/13/16 09:59 Last Admin: 08/15/16 09:41 Dose: 30 mg Pramipexole Dihydrochloride (Mirapex 0.5 Mg Tablet) 0.5 mg PO HS [facility] Stop: 09/12/16 21:59 Last Admin: 08/14/16 21:19 Dose: 0.5 mg Senna (Senokot 8.6 Mg) 17.2 mg PO DAILY [facility] Stop: 09/13/16 09:59 Last Admin: 08/15/16 09:40 Dose: 17.2 mg Simvastatin (Zocor 20mg) 40 mg PO HS [facility] Stop: 09/12/16 21:59 Last Admin: 08/14/16 21:19 Dose: 40 mg Intake & Output 08/15/16 08/16/16 11:59 11:59 Intake Total 1566 Output Total 1100 Balance 466 Weight 95.617 kg Orders 08/15/16 11:49 Discharge Routine Discharge/Telephone Order Routine Lab Tests 08/15/16 05:25 Sodium 136 Potassium 4.6 Chloride 101 Carbon Dioxide 26.7 Anion Gap 12.5 BUN 64 H Creatinine 2.30 H Estimated GFR 21 Glucose 137 H Calcium 8.2 L (2) COPD with exacerbation Current Visit: Yes Status: Resolved (3) Congestive heart failure Current Visit: Yes Status: Chronic (4) Shortness of breath Current Visit: Yes Status: Resolved (5) Fever Current Visit: No Status: Resolved (6) Chronic renal insufficiency, stage III (moderate) Current Visit: No Status: Chronic (7) Diabetes mellitus Current Visit: No Status: Chronic - Discharge Discharge Date: 08/15/16 Disposition: DC TO ANY "OTHER" LONGTERM Condition: Stable Prescriptions: New Cephalexin Mh 500 mg [Keflex 500 mg] 500 mg PO QID #7 capsule Oseltamivir 75 mg [Tamiflu 75MG Capsule] 75 mg PO DAILY #5 cap Continue Simvastatin 40 mg [Zocor 40 mg] 40 mg PO HS Pramipexole Di-HCl 0.5 mg [Mirapex 0.5 MG Tablet] 0.5 mg PO HS #0 Glimepiride 2 mg [Amaryl 2 MG] 2 mg PO DAILY Senna 8.6 mg [Senokot 8.6 mg] 2 tab PO DAILY Pioglitazone 30 mg [Actos 30 MG] 30 mg PO DAILY PANTOPRAZOLE 40 mg Tablet [Protonix 40MG Tablet] 40 mg PO BID Acetaminophen 325 mg [Tylenol 325 mg] 2 tab PO Q4H PRN PRN PRN Reason: Pain Amlodipine Besylate [Norvasc] 2.5 mg PO DAILY Gabapentin [Neurontin] 300 mg PO HS Memantine HCl 5 mg [Namenda 5 MG] 5 mg PO BID Furosemide 40 mg [Lasix 40 MG] 40 mg PO DAILY Ferrous Sulfate 325 mg [Feosol 325 mg] 325 mg PO BID Mirtazapine [Remeron] 7.5 mg PO HS Docusate Sodium 100 mg [Colace 100 MG] 100 mg PO TID Epoetin Wong [Epogen] 5,000 unit IJ UD Glucagon 1 mg [GlucaGen 1 MG] 1 mg IM DAILY PRN PRN PRN Reason: Hypoglycemia Folic Acid 1 mg PO DAILY Hydrocodone Bit/Acetaminophen [Hydrocodon-Acetaminophen 5-325] 1 tab PO [id number] PRN PRN Reason: Pain Melatonin/Pyridoxine [Melatonin 3 mg Tablet] 1 each PO HS Lisinopril/Hydrochlorothiazide [Lisinopril-Hctz 10-12.5 mg Tab] 1 each PO DAILY Levothyroxine Sodium 50 Mcg [Synthroid 50 Mcg] 50 mcg PO DAILY Cholecalciferol (Vitamin D3) [Vitamin D] 5,000 unit PO DAILY Additional Instructions: ALICE GIL LONGTERM ORDERS: SEE ATTACHED MEDICATION LIST FOR CURRENT MED ORDERS ACTIVITY TOLERATED DIET AT LONGTERM CONTINUE ALL OTHER LONGTERM ORDERS Follow up with: KEM GAR [Primary Care Provider] - (DOCTOR TO FOLLOW AT THE LONGTERM.) Forms: Ambulance Transport Record, Transfer Record [facility]dc
[2016-08-16] MEDS ORDERED: OSELTAMIVIR PHOSPHATE 30 MG CAP PO SCH (10:00)
== END 2016-08-15 15:30 ==
LOC: ED 14:08 → MED SURG 18:07
PROVIDERS: ADMIT General Practice; ATTEND General Practice
DX: J10.1 Influenza due to other identified influenza virus with other respiratory manifestations (principal); J44.1 Chronic obstructive pulmonary disease with (acute) exacerbation; I50.9 Heart failure, unspecified; I12.9 Hypertensive chronic kidney disease with stage 1 through stage 4 chronic kidney disease, or unspecified chronic kidney disease; N18.3 Chronic kidney disease, stage 3 (moderate); E11.9 Type 2 diabetes mellitus without complications; J45.909 Unspecified asthma, uncomplicated; E10.9 Type 1 diabetes mellitus without complications; E03.9 Hypothyroidism, unspecified; K21.9 Gastro-esophageal reflux disease without esophagitis; G47.00 Insomnia, unspecified; G51.0 Bell's palsy; Z79.4 Long term (current) use of insulin; Z79.899 Other long term (current) drug therapy
CPT/HCPCS: 82962 ×3; 93268; 93041; 96365; 99285; 36000; 96360; 96361; 93005; 83540 ×2; 83550; 84100; 83970; 36415 ×3; 82728; 82607; 82746; 83880; 82306; 85027; 85025; 82043; 80048; 80053 ×2; 84484; 87631; 71010; 71020; 82805; 94640 ×6; 94760 ×3; A9270 ×45; P9603; 99284; G0378; J0456; J0696; J0885; J1940; J2270

== ENCOUNTER 2020-03-05 19:09 | Inpatient (IN) | payer MEDICARE ==
[2020-03-05] MEDS ORDERED: Sodium Chloride 0.9% 1000 ML 1,000 ML ONE ×2 (19:24→21:18)
[2020-03-05] MEDS ORDERED: Sodium Chloride 0.9% 1000 ML 1,000 ML IV STA ×2 (19:25→21:22)
[2020-03-05] MEDS ORDERED: VENTOLIN COMMON CANISTER IH STA (19:51)
[2020-03-05 20:10] LABS: Absolute Neutrophil Ct (ANC) 10.74 (1.4-6.9); BASOPHIL % 0.2 % (0.0-0.4); Basophil (Absolute #) 0.02 (0-0.4); Eosinophil (Absolute #) 0 (0-0.5); Hematocrit 34.7 % (35-47); Hemoglobin 10.7 gm/dl (12.0-16.0); Lymphocyte (Absolute #) 0.62 (1.0-4.6); Lymphocytes % 5.1 % (24.0-44.0); Mean Cell Volume 104.2 fl (78-100); Mean Corpuscular Hemoglobin 32.1 pg (26-32); Mean Corpuscular Hgb Concent. 30.8 g/dl (32-36); Mean Platelet Volume 10.7 fl (7.5-11.0); Monocyte (Absolute #) 0.87 (0.0-1.3); Monocytes % 7.1 % (0.0-12.0); Neutrophil % 87.6 % (36.0-66.0); Platelet Count 196 K/mm3 (150-450); Red Blood Count 3.33 M/mm3 (4.1-5.4); White Blood Count 12.3 K/mm3 (4.0-10.5)
[2020-03-05 20:16] LABS: ALBUMIN 3.3 g/dL (3.5-5.0); ANION GAP 15.4 MEQ/L (5-15); BILIRUBIN,TOTAL 0.9 mg/dL (0.2-1.3); Calcium 8.7 mg/dL (8.4-10.2); Creatinine 1 2.27 mg/dL (0.52-1.04); EST GLOMERULAR FILTRATION RATE 21.6 ML/MIN; MAGNESIUM 2.1 mg/dL (1.6-2.3); Potassium 5.8 mmol/L (3.5-5.1)
--- NOTE | 2020-03-05 20:21 | ERPHSYRPT ---
- History of Present Illness Time Seen by Provider: 03/05/20 19:16 Source: patient, EMS Exam Limitations: no limitations Patient Subjective Stated Complaint: "I don't remember what happened." Per EMS, pt was being helped into bed at the [facility] when she experienced a syncopal episode. Pt was COVID-19 positive on 02/10/20 Triage Nursing Assessment: Pt alert et confused A&O x2 to person and place. Pt repeated concern for not knowing why she was being seen. Pt denied remembering the syncopal episode in question. Pt denied headache, dizziness, visual/auditory disturbances, difficulty swallowing, chest pain, nausea/vomiting. pt reported experiencing dyspnea. Pt reported wearing oxygen all the time but unknown what amount. Pupils 3mm brisk bilateral reaction. Oral mucosa pink/dry. Neck supple non-tender without cervical/supraclavicular lymphadenopathy. Symmetrical chest expansion. Heart tones regular clear. Lungs clear upper lobes bilateral with fine crackles lower bilateral lobes. Abdomen obese non-tender with bowel sounds present in all quadrants. No noted dependent edema. Physician History: 89 years old female with history of hypertension, hyperlipidemia, diabetes mellitus, chronic respiratory failure on oxygen, recent COVID-19 infection currently resident of senior care is brought in the ER after she had a brief syncopal episode when senior care staff was getting her ready to go to bed. No seizure-like activity noticed. Patient was awake within a minute of syncope. Per report patient has been feeling weak and tired and mild increased short of breath than usual. She is currently on 5 L oxygen but normally on 3 L. She is also having productive cough. Denies any fever or chills. Patient denies any chest pain or palpitation, abdominal pain nausea or vomiting. She does not remember the syncopal episode. Patient is not a good historian and history is limited. Timing/Duration: today, sudden, improved Activities at Onset: activity Associated Symptoms: cough, wheezing, lightheadedness, productive cough, tightness Allergies/Adverse Reactions: aspirin Allergy (Mild, Verified 03/05/20 19:54) codeine [Codeine] Allergy (Mild, Verified 03/05/20 19:54) Penicillins Allergy (Mild, Verified 03/05/20 19:54) Sulfa (Sulfonamide Antibiotics) [Sulfa(Sulfonamide Antibiotics)] Allergy (Mild, Verified 03/05/20 19:54) Tetracyclines Allergy (Verified 03/05/20 19:54) maitake mushroom Adverse Reaction (Mild, Verified 03/05/20 19:54) Nausea and Vomiting Home Medications: Pramipexole Di-HCl 0.5 mg [Mirapex 0.5 MG Tablet] 0.5 mg PO HS #0 03/15/12 [History] Simvastatin 40 mg [Zocor 40 mg] 40 mg PO HS 03/15/12 [History] Acetaminophen 325 mg [Tylenol 325 mg] 2 tab PO Q4H PRN PRN 07/21/14 [History] Glimepiride 2 mg [Amaryl 2 MG] 2 mg PO DAILY 07/21/14 [History] PANTOPRAZOLE 40 mg Tablet [Protonix 40MG Tablet] 40 mg PO BID 07/21/14 [History] Pioglitazone 30 mg [Actos 30 MG] 30 mg PO DAILY 07/21/14 [History] Senna 8.6 mg [Senokot 8.6 mg] 2 tab PO DAILY 07/21/14 [History] Amlodipine Besylate [Norvasc] 2.5 mg PO DAILY 08/13/16 [History] Cholecalciferol (Vitamin D3) [Vitamin D] 5,000 unit PO DAILY 08/13/16 [History] Docusate Sodium 100 mg [Colace 100 MG] 100 mg PO TID 08/13/16 [History] Epoetin Wong [Epogen] 5,000 unit IJ UD 08/13/16 [History] Ferrous Sulfate 325 mg [Feosol 325 mg] 325 mg PO BID 08/13/16 [History] Folic Acid 1 mg PO DAILY 08/13/16 [History] Furosemide 40 mg [Lasix 40 MG] 40 mg PO DAILY 08/13/16 [History] Gabapentin [Neurontin] 300 mg PO HS 08/13/16 [History] Glucagon 1 mg [GlucaGen 1 MG] 1 mg IM DAILY PRN PRN 08/13/16 [History] Hydrocodone Bit/Acetaminophen [Hydrocodon-Acetaminophen 5-325] 1 tab PO [id number] PRN 08/13/16 [History] Levothyroxine Sodium 50 Mcg [Synthroid 50 Mcg] 50 mcg PO DAILY 08/13/16 [History] Lisinopril/Hydrochlorothiazide [Lisinopril-Hctz 10-12.5 mg Tab] 1 each PO DAILY 08/13/16 [History] Melatonin/Pyridoxine [Melatonin 3 mg Tablet] 1 each PO HS 08/13/16 [History] Memantine HCl 5 mg [Namenda 5 MG] 5 mg PO BID 08/13/16 [History] Mirtazapine [Remeron] 7.5 mg PO HS 08/13/16 [History] Hx Tetanus, Diphtheria Vaccination/Date Given: No Hx Influenza Vaccination/Date Given: Yes (2015) Hx Pneumococcal Vaccination/Date Given: No Travel Risk - International Travel Have you traveled outside of the country in past 3 weeks: No - Coronavirus Screening Are you exhibiting any of the following symptoms?: Yes Symptoms: Shortness of Breath Close contact with a COVID-19 positive Pt in past 14-21 Days: Yes - Review of Systems Constitutional: Fatigue, Weakness Eyes: No Symptoms Ears, Nose, & Throat: No Symptoms Respiratory: Cough, Dyspnea, Dyspnea on Exertion (HARVEY), Wheezing Cardiac: No Symptoms Abdominal/Gastrointestinal: No Symptoms Genitourinary Symptoms: No Symptoms Musculoskeletal: Myalgias Skin: No Symptoms Psychological: No Symptoms Endocrine: No Symptoms Hematologic/Lymphatic: No Symptoms - Past Medical History Pertinent Past Medical History: Yes Neurological History: Dementia, Migraines ENT History: No Pertinent History Cardiac History: High Cholesterol, Hypertension Respiratory History: Asthma, Bronchitis, Pneumonia Endocrine Medical History: Diabetes Type I, Hypothyroidism Musculoskeletal History: No Pertinent History GI Medical History: GERD History: Other Psycho-Social History: No Pertinent History Female Reproductive Disorders: No Pertinent History Other Medical History: restless legs, insomnia. hx bells palsey. recent cyst to right kidney - Past Surgical History Past Surgical History: Yes Neuro Surgical History: No Pertinent History Cardiac: No Pertinent History Respiratory: No Pertinent History Gastrointestinal: Appendectomy, Cholecystectomy Genitourinary: No Pertinent History Musculoskeletal: Orthopedic Surgery Female Surgical History: Hysterectomy Other Surgical History: kyphoplasty - Social History Smoking Status: Never smoker Exposure to second hand smoke: No Drug Use: none Patient Lives Alone: Yes - Nursing Vital Signs Nursing Vital Signs: Initial Vital Signs Temperature 99.3 F 03/05/20 19:10 Pulse Rate 114 H 03/05/20 19:10 Respiratory Rate 20 03/05/20 19:10 Blood Pressure 84/58 03/05/20 19:10 O2 Sat by Pulse Oximetry 98 03/05/20 19:10 - Physical Exam General Appearance: no apparent distress, alert Eye Exam: PERRL/EOMI, eyes nml inspection Ears, Nose, Throat Exam: hearing grossly normal, nasal congestion, pharyngeal erythema Neck Exam: normal inspection, non-tender, supple, full range of motion Respiratory Exam: lungs clear, diminished breath sounds, rhonchi, wheezing Cardiovascular/Chest Exam: normal heart sounds, regular rate/rhythm Abdominal/Gastrointestinal Exam: soft, normal bowel sounds, No tenderness Extremity Exam: non-tender Neurologic Exam: alert, oriented x 3, cooperative, [place] mechanic II-XII nml as tested, normal mood/affect, sensation nml, No motor deficits, No intoxicated appearance Skin Exam: normal color SpO2 Interpretation: O2 applied SpO2: 98 O2 Delivery: Nasal Cannula - Course Nursing assessment & vital signs reviewed: Yes EKG Interpreted by Me: RATE ([id number]), Sinus Tach, Left [place] Deviation, NORMAL INTERVALS, Non-specific ST Changes Ordered Tests: Active Orders 24 hr Category Date Time Status EKG-ER Only STAT Care 03/05/20 19:49 Active IV Insertion STAT Care 03/05/20 19:49 Active CHEST 1 VIEW (PORTABLE) Stat Exams 03/05/20 19:50 Taken HEAD WITHOUT CONTRAST [CT] Stat Exams 03/05/20 19:50 Taken BLOOD CULTURE Stat Lab 03/05/20 21:45 Received CBC W DIFF Stat Lab 03/05/20 19:55 Completed CMP Stat Lab 03/05/20 19:55 Completed CULTURE,URINE Stat Lab 03/05/20 20:00 Received Lactic Acid Stat Lab 03/05/20 20:45 Completed Lactic Acid Stat Lab 03/05/20 22:51 Received MAGNESIUM Stat Lab 03/05/20 19:55 Completed TROPONIN Q3H Lab 03/05/20 19:55 Completed TROPONIN Q3H Lab 03/05/20 23:00 Ordered TROPONIN Q3H Lab 03/06/20 02:00 Ordered TROPONIN Q3H Lab 03/06/20 05:00 Ordered TROPONIN Q3H Lab 03/06/20 08:00 Ordered UA W/RFX UR CULTURE Stat Lab 03/05/20 20:00 Completed Respiratory Therapy Assessment DAILY RT 03/05/20 21:27 Completed Transfer Order Routine Transfer 03/05/20 Ordered Medication Summary Discontinued Medications Generic Name Dose Route Start Last Admin Trade Name Freq PRN Reason Stop Dose Admin Albuterol Sulfate 4 puff 03/05/20 19:51 03/05/20 21:27 Ventolin Common Canister IH 03/05/20 19:52 4 puff ONCE STA Administration Dexamethasone Sodium Phosphate 4 mg 03/05/20 22:30 03/05/20 22:40 Decadron 4 Mg Inj IM 03/05/20 22:31 4 mg STAT ONE Administration Dexamethasone Sodium Phosphate Confirm 03/05/20 22:37 Decadron 4 Mg Inj Administered 03/05/20 22:38 Dose 4 mg .ROUTE .STK-MED ONE Sodium Chloride 1,000 mls @ 999 mls/hr 03/05/20 19:25 03/05/20 21:04 Sodium Chloride 0.9% 1000 Ml IV 03/05/20 20:25 Infused .Q1H1M STA Infusion Sodium Chloride Confirm 03/05/20 19:24 Sodium Chloride 0.9% 1000 Ml Administered 03/05/20 19:25 Dose 1,000 mls @ ud .ROUTE .STK-MED ONE Levofloxacin/Dextrose 250 mg in 50 mls @ 50 mls/hr 03/05/20 20:59 03/05/20 22:27 Levaquin 250mg/50ml D5w IV 03/05/20 21:58 Infused STAT STA Infusion Levofloxacin/Dextrose Confirm 03/05/20 21:10 Levaquin 250mg/50ml D5w Administered 03/05/20 21:11 Dose 250 mg in 50 mls @ ud IV .STK-MED ONE Sodium Chloride Confirm 03/05/20 21:18 Sodium Chloride 0.9% 1000 Ml Administered 03/05/20 21:19 Dose 1,000 mls @ ud .ROUTE .STK-MED ONE Sodium Chloride 1,000 mls @ 999 mls/hr 03/05/20 21:22 03/05/20 22:27 Sodium Chloride 0.9% 1000 Ml IV 03/05/20 22:22 Infused .Q1H1M STA Infusion Lab/Rad Data: Laboratory Result Diagrams 03/05/20 19:55 03/05/20 19:55 Laboratory Results 03/05/20 03/05/20 03/05/20 Range/Units 20:45 20:00 20:00 WBC (4.0-10.5) K/mm3 RBC (4.1-5.4) M/mm3 Hgb (12.0-16.0) gm/dl Hct (35-47) % MCV (78-100) fl MCH (26-32) pg MCHC (32-36) g/dl RDW (11.5-14.0) % Plt Count (150-450) K/mm3 MPV (7.5-11.0) fl Gran % (36.0-66.0) % Eos # (Auto) (0-0.5) Absolute Lymphs (auto) (1.0-4.6) Absolute Monos (auto) (0.0-1.3) Lymphocytes % (24.0-44.0) % Monocytes % (0.0-12.0) % Eosinophils % (0.00-5.0) % Basophils % (0.0-0.4) % Absolute Granulocytes (1.4-6.9) Basophils # (0-0.4) Sodium (137-145) mmol/L Potassium (3.5-5.1) mmol/L Chloride (98-107) mmol/L Carbon Dioxide (22-30) mmol/L Anion Gap (5-15) MEQ/L BUN (7-17) mg/dL Creatinine (0.52-1.04) mg/dL Estimated GFR ML/MIN Glucose (74-106) mg/dL Lactic Acid 3.6 H (0.4-2.0) Calcium (8.4-10.2) mg/dL Magnesium (1.6-2.3) mg/dL Total Bilirubin (0.2-1.3) mg/dL AST (14-36) U/L ALT (0-35) U/L Alkaline Phosphatase (38-126) U/L Troponin I (0.000-0.034) ng/mL Serum Total Protein (6.3-8.2) g/dL Albumin (3.5-5.0) g/dL Urine Color YELLOW (YELLOW) Urine Appearance TURBID (CLEAR) Urine pH 6.0 (5-6) Ur Specific [place] 1.017 (1.005-1.025) Urine Protein 100 (Negative) Urine Ketones NEGATIVE (NEGATIVE) Urine Blood MODERATE (0-5) Jae/ul Urine Nitrite NEGATIVE (NEGATIVE) Urine Bilirubin NEGATIVE (NEGATIVE) Urine Urobilinogen NEGATIVE (0-1) mg/dL Ur Leukocyte Esterase MODERATE (NEGATIVE) Urine WBC (Auto) >100 (0-5) /HPF Urine RBC (Auto) 26-50 (0-2) /HPF U Epithel Cells (Auto) RARE (FEW) /HPF Urine Bacteria (Auto) MANY (NEGATIVE) /HPF U Non-Squamous Epi Cells RARE (FEW) /HPF Urine Mucus (Auto) SLIGHT (NEGATIVE) /HPF Urine Culture Reflexed YES (NO) Urine Glucose NEGATIVE (NEGATIVE) mg/dL SARS-CoV-2 (PCR) POSITIVE A (NEGATIVE) 03/05/20 03/05/20 03/05/20 Range/Units 19:55 19:55 19:55 WBC 12.3 H (4.0-10.5) K/mm3 RBC 3.33 L (4.1-5.4) M/mm3 Hgb 10.7 L (12.0-16.0) gm/dl Hct 34.7 L (35-47) % MCV 104.2 H (78-100) fl MCH 32.1 H (26-32) pg MCHC 30.8 L (32-36) g/dl RDW 16.0 H (11.5-14.0) % Plt Count 196 (150-450) K/mm3 MPV 10.7 (7.5-11.0) fl Gran % 87.6 H (36.0-66.0) % Eos # (Auto) 0 (0-0.5) Absolute Lymphs (auto) 0.62 L (1.0-4.6) Absolute Monos (auto) 0.87 (0.0-1.3) Lymphocytes % 5.1 L (24.0-44.0) % Monocytes % 7.1 (0.0-12.0) % Eosinophils % 0.0 (0.00-5.0) % Basophils % 0.2 (0.0-0.4) % Absolute Granulocytes 10.74 H (1.4-6.9) Basophils # 0.02 (0-0.4) Sodium 134 L (137-145) mmol/L Potassium 5.8 H (3.5-5.1) mmol/L Chloride 102 (98-107) mmol/L Carbon Dioxide 23 (22-30) mmol/L Anion Gap 15.4 H (5-15) MEQ/L BUN 58 H (7-17) mg/dL Creatinine 2.27 H (0.52-1.04) mg/dL Estimated GFR 21.6 ML/MIN Glucose 273 H (74-106) mg/dL Lactic Acid (0.4-2.0) Calcium 8.7 (8.4-10.2) mg/dL Magnesium 2.1 (1.6-2.3) mg/dL Total Bilirubin 0.90 (0.2-1.3) mg/dL AST 34 (14-36) U/L ALT 15 (0-35) U/L Alkaline Phosphatase 86 (38-126) U/L Troponin I 0.586 H* (0.000-0.034) ng/mL Serum Total Protein 7.0 (6.3-8.2) g/dL Albumin 3.3 L (3.5-5.0) g/dL Urine Color (YELLOW) Urine Appearance (CLEAR) Urine pH (5-6) Ur Specific [place] (1.005-1.025) Urine Protein (Negative) Urine Ketones (NEGATIVE) Urine Blood (0-5) Jae/ul Urine Nitrite (NEGATIVE) Urine Bilirubin (NEGATIVE) Urine Urobilinogen (0-1) mg/dL Ur Leukocyte Esterase (NEGATIVE) Urine WBC (Auto) (0-5) /HPF Urine RBC (Auto) (0-2) /HPF U Epithel Cells (Auto) (FEW) /HPF Urine Bacteria (Auto) (NEGATIVE) /HPF U Non-Squamous Epi Cells (FEW) /HPF Urine Mucus (Auto) (NEGATIVE) /HPF Urine Culture Reflexed (NO) Urine Glucose (NEGATIVE) mg/dL SARS-CoV-2 (PCR) (NEGATIVE) - Progress Progress: improved, re-examined Air Movement: fair, good Progress Note: 89 years old is evaluated for syncope and fall. Nonfocal neuro exam. Patient is awake alert and oriented, not in any distress although her blood pressure is in 80s. She is given a fluid bolus. Work-up showed white count of 12 with acute renal failure and mildly elevated creatinine but EKG did not show any tall T waves. Negative initial troponin. She does have UTI and a lactate of 3.6. Started on antibiotic/Levaquin. Elevated potassium of 5.8 but I believe after fluid it will improve as patient seems volume depleted. I have obtained CT head which is negative for any acute findings. Chest x-ray did not show any focal pneumonia. COVID-19 testing is obtained w. Discussed with Dr. Roblero and will be admitted if COVID-19 is negative. 03/05/20 22:37 Patient has a positive COVID-19 testing. She also has elevated troponin 0.5, patient is allergic to aspirin. This could be multifactorial NSTEMI versus sepsis hypotension. Pressure is improving and currently in low 100 with second bolus running. Her work of breathing is also improved after albuterol puffs and currently on 3 L which is her baseline and sats around 97%. Patient is not an ideal candidate for any kind of intervention. I have called her power of contract attorney her niece Deborah and and discussed results and patient condition. Per POA patient did not want any kind of interventional work-up done and it is okay to admit her here. I have discussed with Dr. Cornejo who agreed with admission and here, recommended starting her on Decadron. Blood Culture(s) Obtained: Yes Antibiotics given: Yes Discussed with DrMynor: Paul, Other () Will see patient in: hospital (observation) Counseled pt/family regarding: lab results, diagnosis, rad results - Departure Departure Disposition: In-patient Admission Clinical Impression: Syncope and collapse, Sepsis secondary to UTI, Hyperkalemia, NSTEMI (non-ST elevated myocardial infarction) Acute renal failure Qualifiers: Acute renal failure type: unspecified Qualified Code(s): N17.9 - Acute kidney failure, unspecified Hypotension Qualifiers: Hypotension type: other hypotension type Qualified Code(s): I95.89 - Other hypotension Condition: Stable Critical Care Time: Yes Critical Care Time(excluding separately billable procedures): Critical 75-104 mins Referrals: KAYA GIL [Primary Care Provider] -
[2020-03-05 20:54] LABS: Appearance TURBID (CLEAR); Bacteria MANY /HPF (NEGATIVE); Bilirubin NEGATIVE (NEGATIVE); Blood MODERATE Ery/ul (0-5); Epithelial Cells RARE /HPF (FEW); Glucose NEGATIVE (NEGATIVE); Ketones NEGATIVE (NEGATIVE); Leukocyte Esterase MODERATE (NEGATIVE); Mucus SLIGHT /HPF (NEGATIVE); Nitrite NEGATIVE (NEGATIVE); Non-Squamous Epithelial Cells RARE /HPF (FEW); Protein,Urine Dip 100 (Negative); RBC 26-50 /HPF (0-2); Specific Gravity 1.017 (1.005-1.025); Urobilinogen NEGATIVE mg/dL (0-1); WBC >100 /HPF (0-5)
[2020-03-05] MEDS ORDERED: Levaquin 250MG/50ML D5W 250 MG/50 ML BAG IV STA (20:59)
[2020-03-05] MEDS ORDERED: Levaquin 250MG/50ML D5W 250 MG/50 ML BAG IV ONE (21:10)
[2020-03-05] MEDS ORDERED: Decadron 4 MG INJ IM ONE (22:30)
[2020-03-05] MEDS ORDERED: Decadron 4 MG INJ ONE (22:37)
[2020-03-06] MEDS ORDERED: HUMALOG SQ PRN ×2 (00:49→09:25)
[2020-03-06] MEDS ORDERED: TYLENOL 325 MG PO PRN (00:49)
[2020-03-06] MEDS ORDERED: Decadron 4 MG INJ IV SCH ×2 (00:49→10:00)
[2020-03-06] MEDS: Sodium Chloride 0.9% 1000 ML 1,000 ML IV SCH ×3 (01:20→22:52)
[2020-03-06 05:50] LABS: Absolute Neutrophil Ct (ANC) 7.59 (1.4-6.9); BASOPHIL % 0.1 % (0.0-0.4); Basophil (Absolute #) 0.01 (0-0.4); Eosinophil % 0.1 % (0.00-5.0); Eosinophil (Absolute #) 0.01 (0-0.5); Hematocrit 32.5 % (35-47); Hemoglobin 9.8 gm/dl (12.0-16.0); Lymphocyte (Absolute #) 0.61 (1.0-4.6); Lymphocytes % 7.2 % (24.0-44.0); Mean Cell Volume 106.2 fl (78-100); Mean Corpuscular Hgb Concent. 30.2 g/dl (32-36); Mean Platelet Volume 10.5 fl (7.5-11.0); Monocyte (Absolute #) 0.31 (0.0-1.3); Monocytes % 3.6 % (0.0-12.0); Platelet Count 129 K/mm3 (150-450); Red Blood Count 3.06 M/mm3 (4.1-5.4); Red Cell Distribution Width 16.1 % (11.5-14.0); White Blood Count 8.5 K/mm3 (4.0-10.5)
[2020-03-06 06:07] LABS: ALBUMIN 2.8 g/dL (3.5-5.0); ANION GAP 10.9 MEQ/L (5-15); BILIRUBIN,TOTAL 0.4 mg/dL (0.2-1.3); Creatinine 1 2.06 mg/dL (0.52-1.04); EST GLOMERULAR FILTRATION RATE 24.2 ML/MIN; Potassium 5.3 mmol/L (3.5-5.1); Total Protein 6.1 g/dL (6.3-8.2)
--- NOTE | 2020-03-06 07:02 | XRAY ---
Indication: Dementia. Syncope. Multiple contiguous axial images obtained through the head without contrast. Comparison: March 15, 2012. There is age-appropriate global atrophy and minimal periventricular degenerative microvascular ischemia bilaterally. New finding remote lacunar infarct right caudate head and left internal capsule. No acute intracranial hemorrhage, abnormal extra-axial fluid collection, or mass effect. Fourth ventricle is midline without hydrocephalus. Bony calvarium intact with hyperostosis frontalis interna. Visualized paranasal sinuses and mastoid air cells are clear. Impression: Nonacute senile brain with bilateral remote lacunar infarcts. Comment: Preliminary interpretation was made by [facility]. No critical discrepancy.
--- NOTE | 2020-03-06 07:07 | XRAY ---
Indication: Syncope. Comparison: August 15, 2016. Portable chest demonstrates new bilateral patchy airspace opacities without consolidation/large effusion. Stable medial left base calcified pleural plaquing and tiny right upper lobe calcified granuloma. Heart is not enlarged. Descending aorta remains tortuous. Bony thorax demonstrate osteopenia, mild degenerative changes, and lower thoracic kyphoplasty. Impression: New bilateral patchy airspace opacities. Correlate clinically. Comment: Airspace opacities not reported by interpreting ER clinician. Telephone report was given to Dr. Noyola at 0658 hours on March 06, 2020.
[2020-03-06] MEDS ORDERED: REMDESIVIR IV ONE (08:00)
[2020-03-06] MEDS ORDERED: REMDESIVIR 200 MG in Sodium Chloride 0.9% 250 ML 250 ML IV SCH (09:00)
[2020-03-06] MEDS: Pepcid 20 MG VIAL IV SCH ×2 (10:25→22:35)
[2020-03-06] MEDS ORDERED: NON-FORMULARY ITEM (Hydrocodone/Apap 5-325 Tab^^^ 1 TAB) PO PRN (10:31)
[2020-03-06] MEDS ORDERED: NORCO 5/325 MG PO PRN (10:43)
[2020-03-06] MEDS ORDERED: CHLORTHALIDONE PO SCH (10:45)
[2020-03-06] MEDS ORDERED: CALCIFEDIOL PO SCH (10:45)
[2020-03-06] MEDS ORDERED: Lasix 40 MG PO SCH (10:45)
[2020-03-06] MEDS ORDERED: ENOXAPARIN SODIUM SQ SCH (11:00)
[2020-03-06] MEDS ORDERED: MEDICATION INTERVENTION PO SCH (11:00)
[2020-03-06] MEDS: SENOKOT 8.6 MG PO SCH (11:39)
[2020-03-06] MEDS: MAG-OX 400 PO SCH (11:40)
[2020-03-06] MEDS: FEOSOL 325 MG PO SCH ×3 (11:40→22:34)
[2020-03-06] MEDS: Protonix 40MG Tablet PO SCH ×2 (11:40→22:35)
[2020-03-06] MEDS: SYNTHROID 50 MCG PO SCH (11:40)
[2020-03-06] MEDS: NORCO 5/325 MG PO SCH ×2 (11:40→22:35)
[2020-03-06] MEDS: Colace 100 MG PO SCH ×3 (11:40→22:31)
[2020-03-06] MEDS: Actos 30 MG PO SCH (11:40)
[2020-03-06] MEDS: Namenda 5 MG PO SCH ×2 (11:40→22:34)
[2020-03-06] MEDS: ENOXAPARIN SODIUM SQ SCH ×2 (11:41→22:34)
[2020-03-06] MEDS: FOLATE 1 MG PO SCH (11:41)
[2020-03-06] MEDS ORDERED: Neurontin 100 MG PO SCH (13:00)
[2020-03-06] MEDS ORDERED: NON-FORMULARY ITEM (Hydrocodone/Apap 5-325 Tab^^^ 1 TAB) PO SCH (22:00)
[2020-03-06] MEDS ORDERED: NON-FORMULARY ITEM (Latanoprost/Pf [Latanoprost 0.005% Eye Drop] 1 DROP) OP SCH (22:00)
[2020-03-06] MEDS: DESYREL 50 MG PO SCH (22:32)
[2020-03-06] MEDS: Levaquin 250MG/50ML D5W 250 MG/50 ML BAG IV SCH (22:34)
[2020-03-06] MEDS: Xalatan OP SCH (22:35)
[2020-03-06] MEDS: ZOCOR 20MG PO SCH (22:36)
[2020-03-06] MEDS: Zofran 4 MG/2 ML VIAL IV PRN (22:52)
[2020-03-07] MEDS: Zofran 4 MG/2 ML VIAL IV PRN (04:54)
[2020-03-07] MEDS: NORCO 5/325 MG PO SCH ×2 (07:54→21:03)
[2020-03-07] MEDS: Namenda 5 MG PO SCH ×2 (09:00→21:03)
[2020-03-07] MEDS: FOLATE 1 MG PO SCH (09:00)
[2020-03-07] MEDS: Actos 30 MG PO SCH (09:00)
[2020-03-07] MEDS: SENOKOT 8.6 MG PO SCH (09:00)
[2020-03-07] MEDS: SYNTHROID 50 MCG PO SCH (09:00)
[2020-03-07] MEDS: MAG-OX 400 PO SCH (09:00)
[2020-03-07] MEDS: Colace 100 MG PO SCH ×3 (09:00→21:03)
[2020-03-07] MEDS: FEOSOL 325 MG PO SCH ×3 (09:00→21:03)
[2020-03-07] MEDS: ENOXAPARIN SODIUM SQ SCH ×2 (09:00→21:02)
[2020-03-07] MEDS: Protonix 40MG Tablet PO SCH ×2 (09:00→21:03)
[2020-03-07] MEDS: Pepcid 20 MG VIAL IV SCH ×2 (09:00→21:02)
[2020-03-07] MEDS: Ativan 1 MG PO PRN ×2 (09:20→23:52)
[2020-03-07] MEDS: Lactated Ringers 1,000 ML IV SCH (09:20)
[2020-03-07] MEDS: Decadron 4 MG INJ IV SCH (09:21)
--- NOTE | 2020-03-07 09:58 | HP ---
CHIEF COMPLAINT: Syncope, positive COVID-19 test. HISTORY OF PRESENT ILLNESS: Patient is an 89 year-old WF who has lived the last several years at [facility]. She has had a positive COVID-19 test several weeks ago. It was redone when she came in after a syncopal episode at [facility]. It is still positive, but she is very rarely coughing and when she was given a liter of fluid, she said she felt much better. She is talkative, but she has dementia apparently from her drugs and the fact that basically she says everything is okay. CURRENT MEDICATIONS: Gabapentin 1 daily for neuropathy, Amaryl 2 mg 1 q d for diabetes, glucagon PRN, Vicodin 5/325 1 bid and 1 q 8 PRN pain, some eye drops latanoprost, Synthroid 50 q d, Mag-Ox 400, memantine 5 mg bid for dementia, some bulk laxative, Prilosec, Actos probably 40 mg q d, Tylenol 325 q 6 PRN, vitamin C with roger hips unknown reason, cholecalciferol 1 cap q d, chlrothalidone 0.5 q d, vitamin D3 2 tabs q d, B12 1000 q d, Colace 100 q d, Epogen 1000 units it says q d cannot get from the patient exactly how long she has been on this, ferrous sulfate 325, folic acid 1 mg q d, Lasix 40 q d. ALLERGIES: ASPIRIN, CODEINE, PENICILLIN, SULFA, TETRACYCLINE, AND MAITAKE MUSHROOMS. REVIEW OF SYSTEMS: HEENT: Patient seems to hear and see fine, although her conversation is limited. CHEST: She is not short of breath sitting here. She has occasional cough, nonproductive. She denies that she has a cough. CVS: No exertional chest pain, but the troponin was elevated slightly on admission and it stayed elevated throughout the night. Apparently did not smoke. Again, she is not really able to give me much of a history. ABDOMEN: Denies any abdomen pain. She denies constipation. ENDOCRINE: Apparently, she has diabetes mellitus, pernicious anemia, maybe iron deficiency anemia from the drugs she is on. PHYSICAL EXAMINATION: EVALUATION: In the Emergency Room on 3 liters, O2 sat was 92. Pulse was 100, respirations 20. HEENT: Pupils equal and reactive to light. Hearing - Seems to hear. CHEST: Few wheezes bilateral. CVS: Tachycardic, regular. No murmurs or gallops. ABDOMEN: Soft. No masses or organomegaly. EXTREMITIES: Can move all. No edema. LABORATORY DATA: Lactic acid was 1.9 and now it is 3.6. Troponin was elevated to 1.1. On admission, WBC was 12, Hgb 10.7 with macrocytosis of 104.2. Creatinine was elevated to 2.27, BUN 58. Urine was really negative. Albumin was low at 3.3. Patient had a catheter placed in Emergency Room and also received albuterol, dexamethasone 4 mg, levofloxacin 250, and sodium chloride infusion. Temperature was 99 as she left the Emergency Room. IMPRESSION: 1. PATIENT HAD SYNCOPAL EPISODE AT THE [facility] SHE HAS BEEN LIVING AT A LONG TIME. 2. SHE HAS A HISTORY OF COVID-19 POSITIVE OVER 12 DAYS AGO. Prior to the syncopal episode, according to the nurse's notes, she was doing okay. From her labs, she has renal insufficiency, hypothyroidism I guess, and elevated potassium of 5.8 before fluids. PLAN: Patient will be put in isolation. We started her on a statin, but stopped it when realized her creatinine was too elevated and in fact, she is pretty far away from the initial date when she had this disease and her respiratory status isn't bad. She was rehydrated. I believe that perhaps her creatinine may fall, potassium should fall, and hopefully she will stabilize. She looks right now very stable. She is on chlorthalidone which I am not for sure how well that works with this renal insufficiency and may add to her hypokalemia. Will probably discontinue that and a few other vitamins and such and try to look and see why she is getting Epogen. PROGNOSIS: Prognosis actually is good. Will also anticoagulated her.
[2020-03-07] MEDS ORDERED: Lasix 40 MG PO SCH (10:00)
[2020-03-07] MEDS: Levaquin 250MG/50ML D5W 250 MG/50 ML BAG IV SCH (21:02)
[2020-03-07] MEDS: DESYREL 50 MG PO SCH (21:03)
[2020-03-07] MEDS: ZOCOR 20MG PO SCH (21:03)
[2020-03-07] MEDS: Xalatan OP SCH (21:04)
[2020-03-07] MEDS ORDERED: Mirapex 0.5 MG Tablet PO SCH (22:00)
[2020-03-08] MEDS: Lactated Ringers 1,000 ML IV SCH (05:35)
[2020-03-08 06:04] LABS: Hematocrit 32.5 % (35-47); Hemoglobin 9.8 gm/dl (12.0-16.0); Mean Cell Volume 105.5 fl (78-100); Mean Corpuscular Hemoglobin 31.8 pg (26-32); Mean Corpuscular Hgb Concent. 30.2 g/dl (32-36); Mean Platelet Volume 10.6 fl (7.5-11.0); Platelet Count 129 K/mm3 (150-450); Red Blood Count 3.08 M/mm3 (4.1-5.4); Red Cell Distribution Width 16.1 % (11.5-14.0); White Blood Count 6.7 K/mm3 (4.0-10.5)
[2020-03-08 06:13] LABS: ANION GAP 10.4 MEQ/L (5-15); Creatinine 1 1.32 mg/dL (0.52-1.04); EST GLOMERULAR FILTRATION RATE 40.4 ML/MIN; Potassium 3.9 mmol/L (3.5-5.1)
[2020-03-08] MEDS: Ativan 1 MG PO PRN (08:00)
[2020-03-08] MEDS ORDERED: Amaryl 2 MG PO SCH (08:00)
[2020-03-08] MEDS: SYNTHROID 50 MCG PO SCH (09:07)
[2020-03-08] MEDS: Protonix 40MG Tablet PO SCH (09:07)
[2020-03-08] MEDS: SENOKOT 8.6 MG PO SCH (09:07)
[2020-03-08] MEDS: Colace 100 MG PO SCH (09:07)
[2020-03-08] MEDS: MAG-OX 400 PO SCH (09:07)
[2020-03-08] MEDS: ENOXAPARIN SODIUM SQ SCH (09:07)
[2020-03-08] MEDS: Pepcid 20 MG VIAL IV SCH (09:08)
[2020-03-08] MEDS: Decadron 4 MG INJ IV SCH (09:08)
[2020-03-08] MEDS: Actos 30 MG PO SCH (09:08)
[2020-03-08] MEDS: FEOSOL 325 MG PO SCH (09:08)
[2020-03-08] MEDS: Namenda 5 MG PO SCH (09:08)
[2020-03-08] MEDS: NORCO 5/325 MG PO SCH (09:08)
[2020-03-08] MEDS ORDERED: NON-FORMULARY ITEM PO SCH (10:00)
[2020-03-08] MEDS: FOLATE 1 MG PO SCH (10:52)
[2020-03-08 11:48] VITALS: BP 107/52
[2020-03-08 13:34] VITALS: PULSE 80; O2SAT 94
--- NOTE | 2020-03-09 16:09 | DS ---
DISCHARGE DIAGNOSIS: 1. COVID-19. 2. COVID-19 PNEUMONIA. 3. HYPOTHYROIDISM. 4. DEMENTIA. 5. CHRONIC IRON DEFICIENCY ANEMIA. 6. DEHYDRATION WITH SYNCOPE. 7. RENAL INSUFFICIENCY. BRIEF HISTORY: The patient became unconscious and passed out. She was brought to the Emergency Room where her BP was low and she was rehydrated. Her creatinine was elevated and her PaO2's were low. Her test for COVID-19 was positive and she has been in [facility] where there have been numerous patients with COVID-19. Her CT of the head showed some aging phenomenon, not microvascular disease. Her WBC was 8.5, Hgb 9.8. She had some macrocytosis. Cultures were negative. Her d-dimer was markedly elevated. Her chest x-ray showed new bilateral patchy air space opacities typical for COVID-19. The patient did amazingly well. The first day, she was tired, she wasn't coughing much, required O2. On the day of discharge, the patient was laughing, joking, has her O2 off, is eating fair, complaining of constipation. Has no new aches or pains. She was getting Lovenox 30 due to elevated d-dimer. We discontinued the Remdesivir because of her renal insufficiency and basically she didn't have severe COVID-19 at this time. She will be discharge back to [facility] on the medicine she came in on plus Prednisone 40 X 5, 20 X 5, 10 X 5, Lovenox 40 subq for 10 days and will gastroesophageal another d-dimer. Prognosis is felt to be good. She will be on the COVID-19 unit and isolated.
== END 2020-03-08 13:55 | DRG 177 ==
LOC: ED 19:09 → MED SURG 03-06 00:47
PROVIDERS: ADMIT Family Medicine; ATTEND Family Medicine
DX: U07.1 COVID-19 (principal); J12.89 Other viral pneumonia; R55 Syncope and collapse; R53.1 Weakness; E78.00 Pure hypercholesterolemia, unspecified; E03.9 Hypothyroidism, unspecified; F03.90 Unspecified dementia, unspecified severity, without behavioral disturbance, psychotic disturbance, mood disturbance, and anxiety; D50.9 Iron deficiency anemia, unspecified; E86.0 Dehydration; N28.9 Disorder of kidney and ureter, unspecified; Z79.899 Other long term (current) drug therapy
CPT/HCPCS: 36415; 51702; 70450; 80051; 80053; 81001; 82565; 82962; 83605; 83735; 84484; 84520; 85025; 85027; 85379; 87040; 87077; 87086; 87186; 93005; 94640; 94762; 96360; 96361; 96365; 96372; 99291; 99292; U0003; 36000; 71045; 99285; J1100; J1650; J1817; J1956; J2405; A9270-GY

== ENCOUNTER 2020-12-13 17:52 | Emergency (ER) | payer MEDICARE ==
[2020-12-13] MEDS ORDERED: Sodium Chloride 0.9% 1000 ML 1,000 ML IV SCH (18:00)
[2020-12-13 18:41] LABS: Absolute Neutrophil Ct (ANC) 5.31 (1.4-6.9); BASOPHIL % 0.1 % (0.0-0.4); Basophil (Absolute #) 0.01 (0-0.4); Eosinophil % 0.4 % (0.00-5.0); Eosinophil (Absolute #) 0.03 (0-0.5); Hematocrit 35.6 % (35-47); Hemoglobin 11.3 gm/dl (12.0-16.0); Lymphocyte (Absolute #) 1.37 (1.0-4.6); Lymphocytes % 18.9 % (24.0-44.0); Mean Cell Volume 105.6 fl (78-100); Mean Corpuscular Hemoglobin 33.5 pg (26-32); Mean Corpuscular Hgb Concent. 31.7 g/dl (32-36); Mean Platelet Volume 9.7 fl (7.5-11.0); Monocyte (Absolute #) 0.54 (0.0-1.3); Monocytes % 7.4 % (0.0-12.0); Neutrophil % 73.2 % (36.0-66.0); Platelet Count 177 K/mm3 (150-450); Red Blood Count 3.37 M/mm3 (4.1-5.4); Red Cell Distribution Width 15.9 % (11.5-14.0); White Blood Count 7.3 K/mm3 (4.0-10.5)
[2020-12-13] MEDS ORDERED: Sodium Chloride 0.9% 1000 ML 1,000 ML ONE (19:10)
[2020-12-13 19:17] VITALS: O2SAT 100
[2020-12-13 19:19] LABS: INR 1.09 (0.8-3.0); PROTIME 12.9 SECONDS (9.4-12.5)
[2020-12-13 19:53] LABS: ALBUMIN 2.2 g/dL (3.5-5.0); BILIRUBIN,TOTAL 0.4 mg/dL (0.2-1.3); Calcium 8.2 mg/dL (8.4-10.2); Creatinine 1 1.39 mg/dL (0.52-1.04); EST GLOMERULAR FILTRATION RATE 37.9 ML/MIN; MAGNESIUM 1.9 mg/dL (1.6-2.3); Potassium 4.5 mmol/L (3.5-5.1); Total Protein 5.2 g/dL (6.3-8.2)
--- NOTE | 2020-12-13 20:42 | ERPHSYRPT ---
- History of Present Illness Time Seen by Provider: 12/13/20 18:20 Source: patient Exam Limitations: other (Patient has history of dementia.) Patient Subjective Stated Complaint: Per EMS/NH, pt passed large vaginal blood clots today. After passing them, pt became more disoriented than baseline and was hypotensive. Triage Nursing Assessment: Pt skin pale, warm ,dry. Pt does not answer questions appropriately. Unable to voice place or time. Pt pleasantly confused. No obvious bleeding at this time. Physician History: Patient is an 89-year-old female with a history of dementia DNR presents from [facility] for evaluation of passing blood clots from vagina as well as low blood pressure and disorientation. Patient has a history of dementia and is a poor historian. Patient unable to provide to this HPI. However upon arrival patient was pleasant. She was not hypotensive. Patient's primary caregiver is at the bedside states that patient's blood pressure normally runs in the 90s. Patient does not appear to be in pain. [facility] did not report any nausea or vomiting. Patient did not appear to be in pain. Patient currently resting comfortably. Symptoms appear to be mild in intensity. No specific worsening improving factors. Timing/Duration: today Severity: mild Modifying Factors: Improves With: nothing Associated Symptoms: denies symptoms, No diaphoresis, No cough, No chest pain, No fever, No seizure, No weakness Allergies/Adverse Reactions: aspirin Allergy (Mild, Verified 12/13/20 18:14) codeine [Codeine] Allergy (Mild, Verified 12/13/20 18:14) Penicillins Allergy (Mild, Verified 12/13/20 18:14) Sulfa (Sulfonamide Antibiotics) [Sulfa(Sulfonamide Antibiotics)] Allergy (Mild, Verified 12/13/20 18:14) Tetracyclines Allergy (Verified 12/13/20 18:14) maitake mushroom Adverse Reaction (Mild, Verified 12/13/20 18:14) Nausea and Vomiting Home Medications: Acetaminophen 325 mg [Tylenol 325 mg] 2 tab PO Q4HPRN PRN 03/06/20 [History] Chlorthalidone 0.5 tab PO UD 03/06/20 [History] Cyanocobalamin 1000 Mcg/ml [Cyanocobalamin B-12 1000 MCG/ML] 1,000 mcg SQ UD 03/06/20 [History] Docusate Sodium 100 mg [Colace 100 MG] 1 cap PO TID 03/06/20 [History] Epoetin Wong 78676 Units/ml [Procrit 98495 UNITS/ML] 10,000 units SQ WEEKLY 03/06/20 [History] Ferrous Sulfate 325 mg [Feosol 325 mg] 1 tab PO TID 03/06/20 [History] Folic Acid 1 mg [Folate 1 mg] 1 tab PO DAILY 03/06/20 [History] Furosemide 40 mg [Lasix 40 MG] 1 tab PO DAILY 03/06/20 [History] Gabapentin 1 cap PO DAILY 03/06/20 [History] Glimepiride 2 mg [Amaryl 2 MG] 1 tab PO DAILY 03/06/20 [History] Glucagon [Baqsimi] 3 mg IN UD PRN 03/06/20 [History] Hydrocodone/APAP 5-325 Tab^^^ [[place] 5-325 Tablet^^^] 1 tab PO BID 03/06/20 [History] Hydrocodone/APAP 5-325 Tab^^^ [[place] 5-325 Tablet^^^] 1 tab PO Q6HPRN PRN 03/06/20 [History] Latanoprost/Pf [Latanoprost 0.005% Eye Drop] 1 drop HS 03/06/20 [History] Levothyroxine Sodium 50 Mcg [Synthroid 50 Mcg] 1 tab PO DAILY 03/06/20 [History] Magnesium Oxide 400 mg [Mag-Ox 400] 400 mg PO DAILY 03/06/20 [History] Memantine HCl 5 mg [Namenda 5 MG] 1 tab PO BID 03/06/20 [History] Non-Formulary Drug [Non-Formulary Bulk Item] 1 tab PO DAILY 03/06/20 [History] Non-Formulary Drug [Non-Formulary Item] 1 each OR Q24H PRN 03/06/20 [History] Pantoprazole Sodium 1 tab PO BID 03/06/20 [History] Pioglitazone HCl 0.5 tab PO DAILY 03/06/20 [History] Potassium Chloride 2 tab PO BID 03/06/20 [History] Pramipexole Di-HCl [Pramipexole Dihydrochloride] 1 tab PO BID 03/06/20 [History] Sennosides [Senna] 2 tab PO DAILY 03/06/20 [History] Simvastatin 20Mg [Zocor 20Mg] 1 tab PO HS 03/06/20 [History] Apixaban [Eliquis 2.5 mg Tablet] 2.5 mg PO BID 12/13/20 [History] PARoxetine HCl [Paxil] 10 mg PO DAILY 12/13/20 [History] Hx Tetanus, Diphtheria Vaccination/Date Given: No Hx Influenza Vaccination/Date Given: Yes (2015) Hx Pneumococcal Vaccination/Date Given: No Travel Risk - International Travel Have you traveled outside of the country in past 3 weeks: No - Coronavirus Screening Are you exhibiting any of the following symptoms?: No - Vaccine Status Have you recieved a Covid-19 vaccination: Yes Mine Technician: [email or web address] - Vaccination Dates Date of 2cond Vaccination (if applicable): 09/01/20 - Review of Systems All Other Systems: Unable due to condition - Past Medical History Pertinent Past Medical History: Yes Neurological History: Migraines, Dementia ENT History: No Pertinent History Cardiac History: High Cholesterol, Hypertension Respiratory History: Asthma, Bronchitis, Pneumonia Endocrine Medical History: Diabetes Type I, Hypothyroidism Musculoskeletal History: No Pertinent History GI Medical History: GERD History: Other Psycho-Social History: No Pertinent History Female Reproductive Disorders: No Pertinent History Other Medical History: restless legs, insomnia. hx bells palsey. recent cyst t o right kidney - Past Surgical History Past Surgical History: Yes Neuro Surgical History: No Pertinent History Cardiac: No Pertinent History Respiratory: No Pertinent History Gastrointestinal: Appendectomy, Cholecystectomy Genitourinary: No Pertinent History Musculoskeletal: Orthopedic Surgery Female Surgical History: Hysterectomy Other Surgical History: kyphoplasty - Social History Smoking Status: Never smoker Exposure to second hand smoke: No Drug Use: none Patient Lives Alone: Yes - Nursing Vital Signs Nursing Vital Signs: Initial Vital Signs Temperature 97.6 F 12/13/20 18:01 Pulse Rate 92 H 12/13/20 18:01 Respiratory Rate 18 12/13/20 18:01 Blood Pressure 100/65 12/13/20 18:01 O2 Sat by Pulse Oximetry 100 12/13/20 18:01 Pain Scale Pain Intensity 0 - Physical Exam General Appearance: no apparent distress, alert Eye Exam: PERRL/EOMI, eyes nml inspection Ears, Nose, Throat Exam: normal ENT inspection, TMs normal, pharynx normal, moist mucous membranes Neck Exam: normal inspection, non-tender, supple, full range of motion Respiratory Exam: normal breath sounds, lungs clear, No respiratory distress Cardiovascular Exam: regular rate/rhythm, normal heart sounds, normal peripheral pulses Gastrointestinal/Abdomen Exam: soft, normal bowel sounds, other (No abdominal pain observed. No discomfort during palpation. No masses. No signs of abdominal trauma. No rebound. No distention. No rigidity.), No tenderness, No mass Pelvic Exam: other (No active vaginal bleeding observed.) Back Exam: normal inspection, normal range of motion, No CVA tenderness, No vertebral tenderness Extremity Exam: normal inspection, normal range of motion, pelvis stable Neurologic Exam: alert, oriented x 3, cooperative, normal mood/affect, other (Neuro exam limited due to history of dementia.), No motor deficits Skin Exam: normal color, warm, dry, No rash Lymphatic Exam: No adenopathy SpO2 Interpretation: normal SpO2: 100 O2 Delivery: Room Air - Course Nursing assessment & vital signs reviewed: Yes Ordered Tests: Active Orders 24 hr Category Date Time Status Hair Blender STAT Care 12/13/20 17:56 Active IV Insertion STAT Care 12/13/20 17:55 Active Pulse Oximetry (ED) STAT Care 12/13/20 17:55 Active CBC W DIFF Stat Lab 12/13/20 18:37 Completed CMP Stat Lab 12/13/20 18:37 Completed MAGNESIUM Stat Lab 12/13/20 18:37 Completed PROTIME WITH INR Stat Lab 12/13/20 18:37 Completed UA W/RFX UR CULTURE Stat Lab 12/13/20 17:56 Ordered Medication Summary Generic Name Dose Route Start Last Admin Trade Name Freq PRN Reason Stop Dose Admin Sodium Chloride 1,000 mls @ 100 mls/hr 12/13/20 18:00 12/13/20 19:13 Sodium Chloride 0.9% 1000 Ml IV 01/12/21 17:59 100 mls/hr .Q10H KIERAN Administration Lab/Rad Data: Laboratory Result Diagrams 12/13/20 18:37 12/13/20 18:37 Laboratory Results 12/13/20 12/13/20 12/13/20 Range/Units 18:37 18:37 18:37 WBC 7.3 (4.0-10.5) K/mm3 RBC 3.37 L (4.1-5.4) M/mm3 Hgb 11.3 L (12.0-16.0) gm/dl Hct 35.6 (35-47) % MCV 105.6 H (78-100) fl MCH 33.5 H (26-32) pg MCHC 31.7 L (32-36) g/dl RDW 15.9 H (11.5-14.0) % Plt Count 177 (150-450) K/mm3 MPV 9.7 (7.5-11.0) fl Gran % 73.2 H (36.0-66.0) % Eos # (Auto) 0.03 (0-0.5) Absolute Lymphs (auto) 1.37 (1.0-4.6) Absolute Monos (auto) 0.54 (0.0-1.3) Lymphocytes % 18.9 L (24.0-44.0) % Monocytes % 7.4 (0.0-12.0) % Eosinophils % 0.4 (0.00-5.0) % Basophils % 0.1 (0.0-0.4) % Absolute Granulocytes 5.31 (1.4-6.9) Basophils # 0.01 (0-0.4) PT 12.9 H (9.4-12.5) SECONDS INR 1.09 (0.8-3.0) Sodium 134 L (137-145) mmol/L Potassium 4.5 (3.5-5.1) mmol/L Chloride 103 (98-107) mmol/L Carbon Dioxide 25 (22-30) mmol/L Anion Gap 11.0 (5-15) MEQ/L BUN 38 H (7-17) mg/dL Creatinine 1.39 H (0.52-1.04) mg/dL Estimated GFR 37.9 ML/MIN Glucose 116 H (74-106) mg/dL Calcium 8.2 L (8.4-10.2) mg/dL Magnesium 1.9 (1.6-2.3) mg/dL Total Bilirubin 0.40 (0.2-1.3) mg/dL AST 25 (14-36) U/L ALT 16 (0-35) U/L Alkaline Phosphatase 70 (38-126) U/L Serum Total Protein 5.2 L (6.3-8.2) g/dL Albumin 2.2 L (3.5-5.0) g/dL - Progress Progress: improved Progress Note: Patient's hemoglobin is not decreased as compared to the previous hemoglobin. As a matter fact it is slightly higher. Vitals have been stable. Patient has not tachycardic. No fever. Patient appears to be at her baseline. Caregivers at the bedside states that patient is at her baseline. Case discussed with patient's primary care provider who advises discharge. He will follow-up with patient and continue the work-up as an outpatient. We will discharge back to [facility]. Caregiver requesting discharge. She voices no other complaints or concerns at this time. 12/13/20 20:59 12/13/20 21:01 Discussed with .: Charli Will see patient in: office Counseled pt/family regarding: lab results, diagnosis, need for follow-up - Departure Departure Disposition: Home Clinical Impression: Vaginal bleeding Condition: Stable Critical Care Time: No Referrals: VITOR GIL'Stacy MOTLEY [Primary Care Provider] - Additional Instructions: Discharge/Care Plan DEREK LOVE was seen on 12/13/20 in the Emergency Room. The patient was counseled regarding Diagnosis,Lab results, Imaging studies, need for follow up and when to return to the Emergency Room. Prescriptions given: Discharge Note I have spoken with the patient and/or caregivers. I have explained the patient's condition, diagnosis and treatment plan based on the information available to me at this time. I have answered the patient's and/or caregiver's questions and addressed any concerns. The patient and/or caregivers have as good understanding of the patient's diagnosis, condition and treatment plan as can be expected at this point. The vital signs have been stable. The patient's condition is stable and appropriate for discharge from the emergency department. The patient will pursue further outpatient evaluation with the primary care physician or other designated or consulting physician as outlined in the discharge instructions. The patient and/or caregivers are agreeable to this plan of care and follow-up instructions have been explained in detail. The patient and/or caregivers have received these instruction. The patient/and or caregivers are aware that any significant change in condition or worsening of symptoms should prompt an immediate return to this or the closest emergency department or call 911.
[2020-12-13 22:14] LABS: Appearance SLIGHTLY CLOUDY (CLEAR); Bacteria MODERATE /HPF (NEGATIVE); Bilirubin NEGATIVE (NEGATIVE); Blood LARGE Ery/ul (0-5); Glucose 50 mg/dL (NEGATIVE); Ketones TRACE (NEGATIVE); Leukocyte Esterase TRACE (NEGATIVE); Mucus SLIGHT /HPF (NEGATIVE); Nitrite NEGATIVE (NEGATIVE); Protein,Urine Dip >=500 (Negative); Specific Gravity 1.015 (1.005-1.025); Urobilinogen NEGATIVE mg/dL (0-1); WBC >100 /HPF (0-5)
[2020-12-13 22:17] LABS: RBC >101 /HPF (0-2)
[2020-12-13] MEDS ORDERED: Macrobid 100MG Capsule PO STA (22:21)
[2020-12-13] MEDS ORDERED: Macrobid 100MG Capsule ONE (22:22)
[2020-12-13 22:39] VITALS: BP 101/55; PULSE 77
== END 2020-12-13 22:50 | disposition home or self-care (01) ==
LOC: ED 17:52
DX: N93.9 Abnormal uterine and vaginal bleeding, unspecified (principal); F03.90 Unspecified dementia, unspecified severity, without behavioral disturbance, psychotic disturbance, mood disturbance, and anxiety; Z79.899 Other long term (current) drug therapy; I10 Essential (primary) hypertension; E10.9 Type 1 diabetes mellitus without complications
CPT/HCPCS: 36000; 36415; 51702; 80053; 81001; 83735; 85025; 85610; 87077; 87086; 87186; 93041; 94760; 99284; A9270-GY